=== PATIENT | female | born 1975 | race Two or more races ===

== ENCOUNTER 2020-07-12 09:24 | Outpatient (REF) | payer OTHER, SELFPAY ==
[2020-07-16 09:56] LABS: HPV mRNA E6/E7 Not Detected (Not Detected)
== END 2020-07-12 09:25 | disposition home or self-care (01) ==
LOC: HO.LAB 09:24
PROVIDERS: PCP Internal Medicine; Visit Provider Obstetrics & Gynecology
DX: Z01.419 Encounter for gynecological examination (general) (routine) without abnormal findings (principal); D21.9 Benign neoplasm of connective and other soft tissue, unspecified
CPT/HCPCS: 87624; 88142

== ENCOUNTER 2020-07-25 11:03 | Outpatient (REF) | payer OTHER, SELFPAY ==
--- NOTE | 2020-07-25 11:08 | US_ITS ---
EXAMINATION: ULTRASOUND PELVIS COMPLETE CLINICAL INFORMATION: Fibroid follow up. COMPARISON: Ultrasound pelvis 07/19/2019 and 05/31/2019. TECHNIQUE: Transabdominal and transvaginal ultrasound of the pelvis is performed. FINDINGS: The uterus is anteverted, anteflexed measuring 9.9 cm in length, 4.6 cm in AP and 8.6 cm in transverse dimension. The uterus has a bicornuate appearance. There is a heterogeneous large mass in the fundus measuring 7.7 x 6.8 x 8.2 cm. Previously it measured 5.9 x 4.6 x 6.0 cm. No additional lesion seen. There are small nabothian cysts seen in the cervix. The right ovary measures 3.1 x 2.8 x 2.4 cm and volume 10.9 mL. There are 2 anechoic cysts measuring 2.0 x 1.2 x 1.6 cm and 1.7 x 1.2 x 1.5 cm. Previously right ovary measured 2.9 x 2.0 x 2.0 cm. The left ovary measures 3.2 x 2.6 x 3.6 cm. There is an anechoic cyst measuring 3.7 x 2.1 x 2.7 cm. Previously left ovary measured 2.3 x 1.6 x 2.5 cm. US/US transvaginal IMPRESSION: Large uterine fibroid with a maximum dimension of 8.2 cm. Previously same lesion had a maximum dimension of 6.0 and 6.2 cm. Bilateral ovarian cysts. 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 Small nabothian cysts seen.
--- NOTE | 2020-07-25 11:08 | US_ITS ---
EXAMINATION: ULTRASOUND PELVIS COMPLETE CLINICAL INFORMATION: Fibroid follow up. COMPARISON: Ultrasound pelvis 07/19/2019 and 05/31/2019. TECHNIQUE: Transabdominal and transvaginal ultrasound of the pelvis is performed. FINDINGS: The uterus is anteverted, anteflexed measuring 9.9 cm in length, 4.6 cm in AP and 8.6 cm in transverse dimension. The uterus has a bicornuate appearance. There is a heterogeneous large mass in the fundus measuring 7.7 x 6.8 x 8.2 cm. Previously it measured 5.9 x 4.6 x 6.0 cm. No additional lesion seen. There are small nabothian cysts seen in the cervix. The right ovary measures 3.1 x 2.8 x 2.4 cm and volume 10.9 mL. There are 2 anechoic cysts measuring 2.0 x 1.2 x 1.6 cm and 1.7 x 1.2 x 1.5 cm. Previously right ovary measured 2.9 x 2.0 x 2.0 cm. The left ovary measures 3.2 x 2.6 x 3.6 cm. There is an anechoic cyst measuring 3.7 x 2.1 x 2.7 cm. Previously left ovary measured 2.3 x 1.6 x 2.5 cm. US/US pelvic complete IMPRESSION: Large uterine fibroid with a maximum dimension of 8.2 cm. Previously same lesion had a maximum dimension of 6.0 and 6.2 cm. Bilateral ovarian cysts. 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 Small nabothian cysts seen.
== END 2020-07-25 11:04 | disposition home or self-care (01) ==
LOC: HO.US 11:03
PROVIDERS: Visit Provider Obstetrics & Gynecology
DX: D21.9 Benign neoplasm of connective and other soft tissue, unspecified (principal)
CPT/HCPCS: 76830; 76856

== ENCOUNTER 2020-08-07 12:00 | Outpatient (REF) | payer OTHER, SELFPAY ==
--- NOTE | 2020-08-07 | MM_ITS ---
EXAMINATION: MM SCREENING DIGITAL BREAST TOMOSYNTHESIS, BILATERAL CLINICAL INFORMATION: Screening. Asymptomatic. The lifetime risk of breast cancer based on the Tyrer-Cuzick Model is %. COMPARISON: Mammography: December 04, 2018 and studies dating back to May 2012 TECHNIQUE: Digital breast tomosynthesis is performed in both the craniocaudal and mediolateral oblique views along with computer-aided detection (CAD). Synthesized 2D images are generated from the tomosynthesis. Bilateral exaggerated craniocaudal views performed. FINDINGS: The breasts are extremely dense, which lowers the sensitivity of mammography (ACR BI-RADS breast composition Category d). There are no significant masses, abnormal calcifications, or other abnormalities. MM/MM tomosynthesis screening BI IMPRESSION: There are no significant changes from prior study. ASSESSMENT: BI-RADS 1: Negative RECOMMENDATION: Routine annual mammography screening. This patient's information was entered into a reminder system with a target due date for their next mammogram.
== END 2020-08-07 12:01 | disposition home or self-care (01) ==
LOC: HO.MAMMO 12:00
PROVIDERS: Visit Provider Obstetrics & Gynecology
DX: Z12.31 Encounter for screening mammogram for malignant neoplasm of breast (principal)
CPT/HCPCS: 77063; 77067

== ENCOUNTER 2020-08-08 13:36 | Outpatient (REF) | payer OTHER, SELFPAY ==
[2020-08-08 16:48] LABS: MANUAL DIFF FLAG NO
[2020-08-08 16:53] LABS: Appearance Urine CLEAR; Color Urine YELLOW; Glucose Urine UA NEG (NEG); Leukocyte Esterase Urine NEG (NEG); Nitrite Urine NEG (NEG); PH 5.5 (5.0-8.0); Specific Gravity - Urine >= 1.030 (1.005-1.025); Urine Blood NEG (NEG); Urine Ketones NEG (NEG); Urine Protein NEG (NEG-TRACE)
[2020-08-08 16:54] LABS: Basophils Absolute Auto 0.1 X10*3/uL (0.0-0.2); Eosinophils Absolute Auto 0.9 X10*3/uL (0.0-0.4); Eosinophils Percent Auto 8.1 % (0-4); Hematocrit 41.4 % (37-47); Imm Gran Abs Auto 0.03 X10*3/uL (0.00-0.03); Imm Gran Pct Auto 0.3 % (0.0-0.4); Lymphocytes Absolute Auto 2.8 X10*3/uL (1.2-4.9); Lymphocytes Percent Auto 26.2 % (20-40); Mean Corpuscular HGB Conc 33.8 g/dl (31.0-35.0); Mean Corpuscular Hemoglobin 31.6 pg (27.0-33.0); Mean Corpuscular Volume 93.5 fL (80-98); Mean Platelet Volume 11.7 fL (9.4-12.3); Monocytes Absolute Auto 0.8 X10*3/uL (0.1-1.2); Monocytes Percent Auto 7.6 % (2-11); Neutrophils Absolute Auto 6.1 X10*3/uL (2.0-8.3); Neutrophils Percent Auto 56.8 % (45-73); Platelet Count 252 X10*3/uL (160-400); Red Blood Count 4.43 X10*6/uL (4.20-5.50); White Blood Count 10.8 X10*3/uL (4.8-10.8)
[2020-08-08 17:13] LABS: Alanine Aminotransferase 13 U/L (0-31); Alkaline Phosphatase 67 U/L (39-117); Anion Gap 11 (12-20); Aspartate Amino Transferase 19 U/L (5-31); Bilirubin Total 0.7 mg/dL (0.0-1.0); Blood Urea Nitrogen 11 mg/dL (9-16); C Reactive Protein 0.25 mg/dL (< or = 0.50); Calcium 8.7 mg/dL (8.4-10.2); Carbon Dioxide 24 mmol/L (22-29); Chloride 109 mmol/L (96-108); Estimated Glomerular Filt Rate > 60; Glucose Random 92 mg/dL (60-115); Potassium 3.9 mmol/l (3.3-5.1); Sodium 140 mmol/L (135-145); Total Protein 6.4 g/dL (6.5-8.0)
== END 2020-08-08 13:37 | disposition home or self-care (01) ==
LOC: HO.LAB 13:36
PROVIDERS: Absent Provider Internal Medicine; PCP Internal Medicine; Visit Provider Obstetrics & Gynecology
DX: J45.909 Unspecified asthma, uncomplicated (principal); M54.9 Dorsalgia, unspecified; D21.9 Benign neoplasm of connective and other soft tissue, unspecified
CPT/HCPCS: 36415; 80053; 81003; 85025; 86140; 87086

== ENCOUNTER → 2020-10-22 12:10 | Outpatient (BNVA) | payer OTHER, SELFPAY | PROVIDERS: Visit Provider Obstetrics & Gynecology ==

== ENCOUNTER 2020-10-22 12:30 | Outpatient (REF) | payer OTHER, SELFPAY ==
[2020-10-22 13:59] LABS: MANUAL DIFF FLAG NO
[2020-10-22 14:02] LABS: Glucose Urine UA NEG (NEG); Leukocyte Esterase Urine NEG (NEG); Nitrite Urine NEG (NEG); PH 5.5 (5.0-8.0); Specific Gravity - Urine 1.025 (1.005-1.025); Urine Blood NEG (NEG); Urine Ketones NEG (NEG); Urine Protein NEG (NEG-TRACE)
[2020-10-22 14:05] LABS: Appearance Urine CLEAR; Color Urine DARK YELLOW
[2020-10-22 14:10] LABS: Basophils Absolute Auto 0.1 X10*3/uL (0.0-0.2); Basophils Percent Auto 0.8 % (0-2); Eosinophils Absolute Auto 0.4 X10*3/uL (0.0-0.4); Eosinophils Percent Auto 4.5 % (0-4); Hematocrit 38.5 % (37-47); Hemoglobin 12.7 g/dl (12.0-16.0); Imm Gran Abs Auto 0.03 X10*3/uL (0.00-0.03); Imm Gran Pct Auto 0.3 % (0.0-0.4); Lymphocytes Absolute Auto 1.5 X10*3/uL (1.2-4.9); Lymphocytes Percent Auto 17.2 % (20-40); Mean Platelet Volume 11.7 fL (9.4-12.3); Monocytes Absolute Auto 0.8 X10*3/uL (0.1-1.2); Monocytes Percent Auto 8.6 % (2-11); Neutrophils Absolute Auto 6.1 X10*3/uL (2.0-8.3); Neutrophils Percent Auto 68.6 % (45-73); Platelet Count 396 X10*3/uL (160-400); Red Blood Count 4.23 X10*6/uL (4.20-5.50); Red Cell Distribution Width 12.5 % (11.0-16.0); White Blood Count 8.9 X10*3/uL (4.8-10.8)
[2020-10-22 14:17] LABS: Mucus Urine 1+ /LPF; RBC Urine 0 /HPF (0); Squamous Epithelial Cell Urine TRACE /LPF; WBC Urine 0 /HPF (0-4)
[2020-10-22 14:31] LABS: Alanine Aminotransferase 83 U/L (0-31); Albumin Level 3.6 g/dL (3.5-5.0); Alkaline Phosphatase 89 U/L (39-117); Anion Gap 12 (12-20); Aspartate Amino Transferase 89 U/L (5-31); Bilirubin Total 0.6 mg/dL (0.0-1.0); Blood Urea Nitrogen 10 mg/dL (9-16); C Reactive Protein 8.82 mg/dL (< or = 0.50); Calcium 8.7 mg/dL (8.4-10.2); Carbon Dioxide 25 mmol/L (22-29); Chloride 107 mmol/L (96-108); Estimated Glomerular Filt Rate > 60; Glucose Random 82 mg/dL (60-115); Lipase 24 U/L (8-78); Potassium 4.2 mmol/L (3.3-5.1); Sodium 140 mmol/L (135-145); Total Protein 6.5 g/dL (6.5-8.0)
== END 2020-10-22 12:31 | disposition home or self-care (01) ==
LOC: HO.10HDL 12:30
PROVIDERS: Visit Provider Internal Medicine
DX: U07.1 COVID-19 (principal); R10.9 Unspecified abdominal pain; R19.7 Diarrhea, unspecified
CPT/HCPCS: 36415; 80053; 81001; 83690; 85025; 86140; 87086

== ENCOUNTER 2020-10-24 15:15 | Outpatient (REF) | payer OTHER, SELFPAY | END 2020-10-24 15:16 | disposition home or self-care (01) | LOC: HO.US 15:15 | PROVIDERS: PCP Internal Medicine; Visit Provider Obstetrics & Gynecology | DX: Z13.89 Encounter for screening for other disorder (principal) ==

== ENCOUNTER 2020-10-24 15:29 | Outpatient (REF) | payer OTHER, SELFPAY ==
--- NOTE | 2020-10-24 | US_ITS ---
EXAMINATION: US ABDOMEN COMPLETE CLINICAL INFORMATION: Abdominal pain. COMPARISON: None TECHNIQUE: Real-time imaging of the abdominal viscera. FINDINGS: PANCREAS: Normal. ABDOMINAL AORTA: The proximal, mid, and distal segments are normal in caliber. INFERIOR VENA CAVA: Visualized portions are normal. LIVER: Normal. The liver is normal in size. The liver contour is normal. Parenchymal echogenicity is normal. No focal hepatic lesion. There is no intrahepatic biliary duct dilatation seen. GALLBLADDER: Surgically absent. COMMON BILE DUCT: Normal in caliber measuring 0.4 cm in diameter. RIGHT KIDNEY: Normal. No hydronephrosis. No renal calculi or focal parenchymal lesions. The kidney measures 10.0 cm in maximum dimension. LEFT KIDNEY: Duplicated collecting system is suspected. No hydronephrosis. No renal calculi or focal parenchymal lesions. The kidney measures 13.3 cm in maximum dimension. SPLEEN: Normal. The spleen measures 7.9 cm in maximum dimension. FREE FLUID: None. US/US abdomen complete IMPRESSION: Unremarkable abdominal ultrasound.
== END 2020-10-24 15:30 | disposition home or self-care (01) ==
LOC: HO.HMGCX 15:29
PROVIDERS: PCP Internal Medicine; Visit Provider Internal Medicine
DX: R10.9 Unspecified abdominal pain (principal); R94.5 Abnormal results of liver function studies
CPT/HCPCS: 76700

== ENCOUNTER 2020-10-25 11:34 | Outpatient (REF) | payer OTHER, SELFPAY ==
[2020-10-26 08:34] LABS: HBS Num1 1.95 mIU/mL (0-7.99); HBsAGNum1 0.16 S/CO (0.00-0.99); Hepatitis B Surface Antigen Negative (Negative); ~Hepatitis B Surface Antibody NONREACTIVE (Nonreactive)
[2020-10-26 08:43] LABS: ~HepC Num1 0.14 S/CO (0.00-0.79); ~Hepatitis C Antibody Nonreactive (Nonreactive)
== END 2020-10-25 11:35 | disposition home or self-care (01) ==
LOC: HO.HMGCLDS 11:34
PROVIDERS: PCP Internal Medicine; Visit Provider Internal Medicine
DX: R79.89 Other specified abnormal findings of blood chemistry (principal)
CPT/HCPCS: 36415; 86706; 86803; 87340

== ENCOUNTER 2020-10-29 12:40 | Outpatient (REF) | payer OTHER, SELFPAY ==
[2020-10-29 14:35] LABS: Alanine Aminotransferase 38 U/L (0-31); Albumin Level 3.9 g/dL (3.5-5.0); Alkaline Phosphatase 86 U/L (39-117); Aspartate Amino Transferase 25 U/L (5-31); Bilirubin Direct < 0.2 mg/dL (0.0-0.5); Bilirubin Total 0.2 mg/dL (0.0-1.0); C Reactive Protein 1.35 mg/dL (< or = 0.50); Total Protein 6.8 g/dL (6.5-8.0)
[2020-10-30 17:22] LABS: EBV-VCA IgG Ab >750.00 U/mL; EBV-VCA IgM Ab <36.00 U/mL
== END 2020-10-29 12:41 | disposition home or self-care (01) ==
LOC: HO.10HDL 12:40
PROVIDERS: Visit Provider Internal Medicine
DX: R10.9 Unspecified abdominal pain (principal); R79.89 Other specified abnormal findings of blood chemistry
CPT/HCPCS: 36415; 80076; 86140; 86664; 86665

== ENCOUNTER 2020-11-06 15:47 | Outpatient (REF) | payer OTHER, SELFPAY ==
--- NOTE | ~2020-11-06 | US_ITS ---
EXAMINATION: US PELVIS TRANSVAGINAL CLINICAL INFORMATION: Pelvic and perineal pain COMPARISON: July 25, 2020 and July 12, 2019 TECHNIQUE: Transcutaneous and transvaginal pelvic ultrasound. Transvaginal scanning was performed after voiding to better evaluate the endometrium and adnexa. FINDINGS: The uterus measures 10.6 x 5.2 x 8.7 cm. The uterus is anteverted. No suspicious abnormalities region of the cervix. Nabothian cysts are present. The uterine contour is smooth. There is a bicornate uterus present. The endometrium measures 0.5 cm. There is a large heterogeneous echotexture structure involving the posterior body and fundus of the uterus measuring approximately 6.2 x 6.7 x 7.0 cm which is slightly smaller than on prior study where it measured 7.7 x 6.8 x 8.2 cm in size. The right ovary measures approximately 3.9 x 1.7 x 2.8 cm. The calculated right ovarian volume is approximately 9.7 mL. There is a minimal complex 1.3 x 1.1 cm right ovarian cyst with a thin septum.. Normal vascular flow is present. The left ovary measures 2.4 x 2.0 x 2.5 cm. The calculated left ovarian volume is approximately 6.3 mL. No abnormal left adnexal mass appreciated. There is normal vascular flow present. No significant free pelvic fluid. US/US transvaginal IMPRESSION: Bicornuate uterus. Large uterine body/fundal fibroid slightly smaller than on prior study with maximum dimension of approximately 7 cm. Right ovarian cyst.
--- NOTE | ~2020-11-06 | US_ITS ---
EXAMINATION: US PELVIS TRANSVAGINAL CLINICAL INFORMATION: Pelvic and perineal pain COMPARISON: July 25, 2020 and July 12, 2019 TECHNIQUE: Transcutaneous and transvaginal pelvic ultrasound. Transvaginal scanning was performed after voiding to better evaluate the endometrium and adnexa. FINDINGS: The uterus measures 10.6 x 5.2 x 8.7 cm. The uterus is anteverted. No suspicious abnormalities region of the cervix. Nabothian cysts are present. The uterine contour is smooth. There is a bicornate uterus present. The endometrium measures 0.5 cm. There is a large heterogeneous echotexture structure involving the posterior body and fundus of the uterus measuring approximately 6.2 x 6.7 x 7.0 cm which is slightly smaller than on prior study where it measured 7.7 x 6.8 x 8.2 cm in size. The right ovary measures approximately 3.9 x 1.7 x 2.8 cm. The calculated right ovarian volume is approximately 9.7 mL. There is a minimal complex 1.3 x 1.1 cm right ovarian cyst with a thin septum.. Normal vascular flow is present. The left ovary measures 2.4 x 2.0 x 2.5 cm. The calculated left ovarian volume is approximately 6.3 mL. No abnormal left adnexal mass appreciated. There is normal vascular flow present. No significant free pelvic fluid. US/US pelvic complete IMPRESSION: Bicornuate uterus. Large uterine body/fundal fibroid slightly smaller than on prior study with maximum dimension of approximately 7 cm. Right ovarian cyst.
== END 2020-11-06 15:48 | disposition home or self-care (01) ==
LOC: HO.US 15:47
PROVIDERS: Visit Provider Obstetrics & Gynecology
DX: R10.2 Pelvic and perineal pain (principal)
CPT/HCPCS: 76830; 76856

== ENCOUNTER 2020-11-12 11:43 | Outpatient (REF) | payer OTHER, SELFPAY ==
[2020-11-13 08:21] LABS: CA-125 16 U/mL (<35)
== END 2020-11-12 11:44 | disposition home or self-care (01) ==
LOC: HO.LAB 11:43
PROVIDERS: PCP Internal Medicine; Visit Provider Obstetrics & Gynecology
DX: R10.2 Pelvic and perineal pain (principal); D21.9 Benign neoplasm of connective and other soft tissue, unspecified; N83.299 Other ovarian cyst, unspecified side; J45.909 Unspecified asthma, uncomplicated; Z79.899 Other long term (current) drug therapy
CPT/HCPCS: 36415; 86304

== ENCOUNTER → 2020-11-13 16:19 | Outpatient (BNVA) | payer OTHER, SELFPAY | PROVIDERS: PCP Internal Medicine; Visit Provider Obstetrics & Gynecology ==

== ENCOUNTER 2020-12-06 11:20 | Outpatient (REF) | payer OTHER, SELFPAY ==
--- NOTE | ~2020-12-06 | CT_ITS ---
EXAMINATION: CT ABDOMEN AND PELVIS WITHOUT CONTRAST CLINICAL INFORMATION: Left lower quadrant abdominal pain. COMPARISON: Ultrasound pelvis 11/06/2020. TECHNIQUE: Multidetector volumetric imaging was performed from the superior aspect of the liver through the pubic symphysis. Sagittal and coronal reformatted images were obtained on the technologist's workstation. This CT examination was performed using dose optimization techniques as appropriate, variously including the following: *Automated exposure control *Adjustment of mA and/or kV according to patient size (this includes techniques or standardized protocols for targeted exams where dose is matched to indication/reason for exam; i.e. extremities or head) *Use of iterative reconstruction technique DLP: 330 mGy-cm FINDINGS: LUNG BASES: There is a 4 nodule in the left lower lobe (axial image 5/5). The heart size is normal. LIVER, GALLBLADDER, AND BILIARY TREE: The liver is normal in size, shape, and attenuation. No focal hepatic lesion or biliary ductal dilatation is present. The gallbladder has been surgically removed. PANCREAS: Unremarkable. SPLEEN: Unremarkable. ADRENAL GLANDS: Unremarkable. KIDNEYS AND URETERS: The kidneys are normal in size, shape, and attenuation. No hydronephrosis, hydroureter, or calculi are seen. No perinephric stranding. BLADDER: Unremarkable. GASTROINTESTINAL TRACT: The small and large bowel is unremarkable. The appendix is unremarkable. ABDOMINAL WALL: No significant hernia is appreciated. LYMPH NODES: Normal. VASCULAR: Unremarkable. PELVIC VISCERA: The uterus is bulky and enlarged from underlying fundal fibroid disease. The moderate-sized lesion in the fundus measures 3.3 x 5.7 x 3.5 cm. There are 2 hypodense lesions in the left adnexa/upper pelvis measuring 3.2 x 2.2 cm and 3.5 x 2.3 cm measuring approximately 25 to 30 Hounsfield units, likely complex cysts. These were not seen on the previous ultrasound exam. No abnormality is seen in the right adnexa. There is no free fluid in the pelvis. OSSEOUS STRUCTURES: Unremarkable. CT/CT abdomen pelvis wo con IMPRESSION: 2 complex lesion in the left adnexa, likely complex ovarian cysts. These are new. The right ovarian cyst seen on the recent ultrasound is not seen on today's exam. Bulky uterus from a large fundal uterine fibroid. This was seen on the recent ultrasound pelvis exam and measured 6.2 x 6.7 x 7.0 cm.
== END 2020-12-06 11:21 | disposition home or self-care (01) ==
LOC: HO.CT 11:20
PROVIDERS: Visit Provider Internal Medicine
DX: R10.32 Left lower quadrant pain (principal)
CPT/HCPCS: 74176

== ENCOUNTER 2020-12-14 11:10 | Outpatient (REF) | payer OTHER, SELFPAY ==
[2020-12-14 13:53] LABS: Glucose Urine UA NEG (NEG); Leukocyte Esterase Urine NEG (NEG); Nitrite Urine NEG (NEG); PH 5.5 (5.0-8.0); Specific Gravity - Urine >= 1.030 (1.005-1.025); Urine Blood NEG (NEG); Urine Ketones NEG (NEG); Urine Protein NEG (NEG-TRACE)
[2020-12-14 13:56] LABS: Appearance Urine CLEAR; Color Urine YELLOW
[2020-12-14 14:05] LABS: MANUAL DIFF FLAG NO
[2020-12-14 14:10] LABS: Basophils Absolute Auto 0.1 X10*3/uL (0.0-0.2); Basophils Percent Auto 1.2 % (0-2); Eosinophils Absolute Auto 0.5 X10*3/uL (0.0-0.4); Eosinophils Percent Auto 5.9 % (0-4); Hematocrit 41.2 % (37-47); Hemoglobin 13.7 g/dl (12.0-16.0); Imm Gran Abs Auto 0.02 X10*3/uL (0.00-0.03); Imm Gran Pct Auto 0.3 % (0.0-0.4); Lymphocytes Absolute Auto 1.7 X10*3/uL (1.2-4.9); Lymphocytes Percent Auto 21.3 % (20-40); Mean Corpuscular HGB Conc 33.3 g/dl (31.0-35.0); Mean Corpuscular Hemoglobin 30.2 pg (27.0-33.0); Mean Corpuscular Volume 90.9 fL (80-98); Mean Platelet Volume 11.9 fL (9.4-12.3); Monocytes Absolute Auto 0.7 X10*3/uL (0.1-1.2); Monocytes Percent Auto 8.3 % (2-11); Neutrophils Absolute Auto 4.9 X10*3/uL (2.0-8.3); Platelet Count 284 X10*3/uL (160-400); Red Blood Count 4.53 X10*6/uL (4.20-5.50); Red Cell Distribution Width 13.8 % (11.0-16.0); White Blood Count 7.8 X10*3/uL (4.8-10.8)
[2020-12-14 14:39] LABS: Alanine Aminotransferase 22 U/L (0-31); Albumin Level 4.2 g/dL (3.5-5.0); Alkaline Phosphatase 80 U/L (39-117); Anion Gap 16 (12-20); Aspartate Amino Transferase 22 U/L (5-31); Bilirubin Total 0.5 mg/dL (0.0-1.0); Blood Urea Nitrogen 14 mg/dL (9-16); C Reactive Protein 0.48 mg/dL (< or = 0.50); Calcium 9.2 mg/dL (8.4-10.2); Carbon Dioxide 21 mmol/L (22-29); Chloride 105 mmol/L (96-108); Estimated Glomerular Filt Rate > 60; Glucose Random 77 mg/dL (60-115); Lipase 21 U/L (8-78); Potassium 4.2 mmol/L (3.3-5.1); Sodium 138 mmol/L (135-145); Total Protein 7.1 g/dL (6.5-8.0)
[2020-12-14 14:48] LABS: Erythrocyte Sedimentation Rate 8 MM/HR (0-20)
[2020-12-14 15:01] LABS: Free T4 (Free Thyroxine) 0.86 ng/dL (0.71-1.85); Thyroid Stimulating Hormone 1.21 uIU/mL (0.32-4.0); Vitamin B12 422 pg/mL (200-900)
[2020-12-16 13:21] LABS: Anti Nuclear Antibody Screen NEGATIVE (NEGATIVE)
== END 2020-12-14 11:11 | disposition home or self-care (01) ==
LOC: HO.10HDL 11:10
PROVIDERS: Visit Provider Internal Medicine
DX: R53.83 Other fatigue (principal); G62.9 Polyneuropathy, unspecified; R63.4 Abnormal weight loss; R23.3 Spontaneous ecchymoses; Z86.16 Personal history of COVID-19
CPT/HCPCS: 36415; 80053; 81003; 82306; 82607; 83690; 84439; 84443; 85025; 85652; 86038; 86039; 86140; 87086

== ENCOUNTER → 2021-12-30 09:23 | Outpatient (BNVA) | payer OTHER, SELFPAY | PROVIDERS: PCP Internal Medicine; Visit Provider Obstetrics & Gynecology | DX: Z13.89 Encounter for screening for other disorder (principal) ==

== ENCOUNTER 2022-02-25 10:49 | Outpatient (REF) | payer OTHER, SELFPAY ==
--- NOTE | ~2022-02-25 | US_ITS ---
EXAMINATION: US PELVIS CLINICAL INFORMATION: Ovarian cyst. COMPARISON: None. TECHNIQUE: Ultrasound of the pelvis is performed using both transabdominal and transvaginal transducers along with Doppler. Transvaginal imaging is performed due to inadequate visualization transabdominally. FINDINGS: Uterus: Suspect bicornuate uterus. The uterus is anteverted, anteflexed and enlarged measuring 19 cm in length, 4.5 cm in AP and 8.0 cm in transverse dimension. The double wall endometrial thickness is 0.9 cm. There is a small amount of fluid within the endometrial canal. There is a hypoechoic mass in the fundal uterus measuring 6.2 x 3.9 x 6.0 cm. Previously it measured 6.2 x 6.7 x 7.0 cm. There is a calcification in the cervix with few scattered nabothian cysts. The uterus is smooth in contour and has normal myometrial echogenicity. No visible fibroid. Adnexa: Both ovaries are visualized. There is normal color flow to the adnexa. There is no ovarian torsion. There is no pelvic ascites or fluid collection. Right ovary measures 2.6 x 2.0 x 2.7 cm and volume 7.3 mL. There is an exophytic or paraovarian cyst measuring 1.3 x 1.0 x 1.4 cm. Left ovary measures 3.1 x 2.4 x 3.2 cm and volume 12.5 mL. There is left adnexal cyst measuring 0.4 x 2.4 x 3.5 cm. A complex left ovarian cyst is seen measuring 2.3 x 1.5 x 2.2 cm. There is no free fluid seen. US/US pelvic and transvaginal IMPRESSION: Likely bilateral paraovarian cyst and a complex left ovarian cyst. Small nabothian cysts seen in the cervix with focal calcification in the cervix. Likely bicornuate uterus with a solid fibroid in the fundus.
== END 2022-02-25 10:50 | disposition home or self-care (01) ==
LOC: HO.US 10:49
PROVIDERS: PCP Internal Medicine; Visit Provider Obstetrics & Gynecology
DX: N83.299 Other ovarian cyst, unspecified side (principal)
CPT/HCPCS: 76830; 76856

== ENCOUNTER 2022-03-13 10:30 | Outpatient (REF) | payer OTHER, SELFPAY ==
[2022-03-28 12:00] LABS: CA-125 15
== END 2022-03-13 10:31 | disposition home or self-care (01) ==
LOC: HO.LAB 10:30
PROVIDERS: PCP Internal Medicine; Visit Provider Obstetrics & Gynecology
DX: N83.299 Other ovarian cyst, unspecified side (principal)
CPT/HCPCS: 36415; 86304

== ENCOUNTER 2022-06-27 10:49 | Outpatient (REF) | payer OTHER, SELFPAY ==
--- NOTE | ~2022-06-27 | US_ITS ---
EXAMINATION: US PELVIS CLINICAL INFORMATION: Ovarian cyst COMPARISON: Previous pelvic ultrasounds most recent February 2022 TECHNIQUE: Ultrasound of the pelvis is performed using both transabdominal and transvaginal transducers along with Doppler. Transvaginal imaging is performed due to inadequate visualization transabdominally. FINDINGS: The uterus is anteverted and measures 11.8 x 5 x 9 cm in dimension. There is a posterior fundal uterine fibroid measuring 5.2 x 3.6 x 6 cm. This appears unchanged. There are 2 endometrial canals each measuring 0.9 cm. There are nabothian cysts in the cervix. The right ovary measures 2.9 x 1.1 x 1.1 cm. There is a 1.6 x 1 x 1.7 cm paraovarian or adnexal simple cyst. The left ovary measures 3.9 x 2 x 3.6 cm. There are multiple left ovarian cysts, largest a paraovarian or adnexal cyst measuring 3.5 x 2.5 x 4.3 cm. There is no fluid in the pelvis. US/US pelvic and transvaginal IMPRESSION: Enlarged uterus and large posterior fundal uterine fibroid. 2 endometrial canals questionable for septate or arcuate versus bicornuate uterus. Bilateral simple adnexal cysts, largest measuring 3.5 x 2.5 x 4.3 cm on the left.
== END 2022-06-27 10:50 | disposition home or self-care (01) ==
LOC: HO.US 10:49
PROVIDERS: Visit Provider Obstetrics & Gynecology
DX: N83.299 Other ovarian cyst, unspecified side (principal)
CPT/HCPCS: 76830; 76856

== ENCOUNTER 2022-09-18 10:35 | Outpatient (REF) | payer OTHER, SELFPAY ==
[2022-09-18 11:23] LABS: Influenza A PCR NEGATIVE (Negative); Influenza B PCR NEGATIVE (Negative); Resp Syncy Virus RNA Qual PCR NEGATIVE (Negative); SARS COV2 PCR INHOUSE NEGATIVE (Negative)
== END 2022-09-18 10:36 | disposition home or self-care (01) ==
LOC: HO.LNP 10:35
PROVIDERS: Visit Provider Internal Medicine
DX: Z20.822 Contact with and (suspected) exposure to COVID-19 (principal); R06.02 Shortness of breath
CPT/HCPCS: 0241U

== ENCOUNTER 2023-04-28 09:32 | Outpatient (AMB) | payer OTHER, SELFPAY ==
--- NOTE | 2023-04-28 09:34 | A.OFFVIS_ITS ---
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 No complaints. History of myoma on ultrasound seen in 07/12. 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ly active: Yes Sexual orientation: Straight/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 Gender identity: Female Female Reproductive History Menstrual Age of Menarche: 11 Date of last menstrual period: 04/08/23 control method: none Total pregnancies: 4 Full term: 2 Number of Living Children: 2 Ab induced: 1 Ab spontaneous: 1 Date of last pap smear: 07/13/20 History of abnormal pap smear: No Date of Mammogram: 07/13/20 History of abnormal mammogram: No Review of Systems Const All systems reviewed & are unremarkable except as noted in HPI and below Card Reports as per HPI Resp Reports as per HPI GI Reports as per HPI and Reports no additional complaints Reports as per HPI Physical Exam Vital Signs: Last Vital Signs BP 110/68 04/28/23 09:38 BMI result Body Mass Index 26.7 Const General: cooperative, healthy appearing and comfortable Chest Chest palpation & inspection: normal inspection of the chest and normal palpation of entire chest wall Breast/axilla inspection: normal inspection of the breasts and normal inspection of the axillae Breast/axilla palpation: normal palpation of the breasts, normal palpation of the axillae and no axillary lymphadenopathy Resp Effort & Inspection: normal respiratory effort Auscultation: clear to auscultation bilaterally Percussion: percussion normal Cardio Palpation: normal PMI Rate: regular rate Rhythm: regular rhythm Heart sounds: no murmurs and no rubs Peripheral pulses: Peripheral pulses 2+ throughout GI Inspection: Yes normal to inspection Palpation (GI): Soft to palpation, nontender, no guarding, not rigid and No hepatosplenomegaly present Percussion: Yes normal to percussion Auscultation: normal bowel sounds Rectal Exam - Female: deferred General: Yes bladder normal to palpation External Female Exam: No lesion Speculum Exam - Vagina: normal appearance of the vagina, normal palpation, normal vaginal discharge and not erythematous Speculum Exam - Cervix: normal appearance of the cervix and normal palpation Bimanual exam- vagina & uterus: normal bimanual exam, normal palpation, uterine size normal, bladder normal to palpation, consistency normal and normal palpation Bimanual Exam- Adnexa, other: normal adnexae, no masses and no tenderness Assessment & Plan Assessment & Plan (1) Well woman exam: Code(s): Z01.419 - Encounter for gynecological examination (general) (routine) without abnormal findings Plan: Cotesting not indicated this year. Mammogram ordered. Counseled the patient about the recommended dietary allowance of 1000 mg of Calcium & 600 IU of vitamin D. Referred to GI for screening colonoscopy. The patient was instructed to perform monthly self-breast exams and to schedule an annual exam in a year; All questions answered and the patient verbalized understanding. Instructed the patient to schedule annual exam in a year (2) Myoma: Code(s): D21.9 - Benign neoplasm of connective and other soft tissue, unspecified Plan: For repeat pelvic ultrasound compare the size of the myoma and treat accordingly. Instructions given the patient to schedule ultrasound follow-up appointment in 2 weeks. Orders: Orders MM screening mammo BI Today Z12.31 - Encounter for screening mammogram for malignant neoplasm of breast US pelvic and transvaginal Today D21.9 - Benign neoplasm of connective and other soft tissue, unspecified Referrals Gastroenterology Referral Z12.11 - Encounter for screening for malignant neoplasm of colon Coding Level of Care Code Est Pt Prev Care 40-64y([id number]) Diagnoses Well woman exam Z01.419 Myoma D21.9
[2023-04-28 09:38] VITALS: BP 110/68; BMI 26.7
== END 2023-04-28 10:09 | disposition home or self-care (01) ==
LOC: HO.HWS 09:32
PROVIDERS: PCP Internal Medicine; Visit Provider Obstetrics & Gynecology
DX: Z01.419 Encounter for gynecological examination (general) (routine) without abnormal findings (principal); D21.9 Benign neoplasm of connective and other soft tissue, unspecified
CPT/HCPCS: 99396

== ENCOUNTER → 2023-04-28 09:32 | Outpatient (BNVA) | payer OTHER, SELFPAY | PROVIDERS: PCP Internal Medicine; Visit Provider Obstetrics & Gynecology ==

== ENCOUNTER 2023-05-14 10:37 | Outpatient (REF) | payer OTHER, SELFPAY ==
--- NOTE | ~2023-05-14 | US_ITS ---
EXAMINATION: US PELVIS CLINICAL INFORMATION: Myoma; the last menstrual period was on 05/04/2023. COMPARISON: Pelvic ultrasound dated 06/27/2022. TECHNIQUE: Ultrasound of the pelvis is performed using both transabdominal and transvaginal transducers along with Doppler. Transvaginal imaging is performed due to inadequate visualization transabdominally. FINDINGS: The uterus is of normal size and echogenicity measuring 14.0 x 5.3 x 8.6 cm. 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 A regular, homogeneous endometrium is identified measuring 1.4 cm. FIBROIDS: There are 2 fibroids seen. 1. Location: Posterior rightward fundus, subserosal. Size: 4.7 x 4.5 x 5.5 cm. Prior: 5.2 x 3.9 x 6.0 cm. Fibroid characteristics: Heterogeneously hypoechoic. 2. Location: Anterior leftward upper body, myometrial. Size: 1.8 x 1.5 x 1.8 cm. Prior: Not seen. Fibroid characteristics: Hypoechoic. Both ovaries are of normal size and echogenicity. The right measures 3.8 x 2.4 x 2.1 cm for a volume of 10.0 mL. The left measures 3.4 x 1.0 x 2.4 cm for a volume of 4.3 mL. There is no pelvic free fluid. Within the left adnexal region, superolateral to the left ovary, a 5.0 x 2.7 x 4.4 cm fluid-filled tubular structure is seen suspicious for a hydrosalpinx. There is prominent pelvic vasculature, right greater than left. US/US pelvic and transvaginal IMPRESSION: 1. Uterine fibroids are seen, as detailed. 2. The uterus shows a bicornuate appearance. 3. A left hydrosalpinx is again suspected, with dimensions as detailed. 4. There is prominent adnexal vasculature, right greater than left, suggesting possible pelvic congestion.
== END 2023-05-14 10:38 | disposition home or self-care (01) ==
LOC: HO.US 10:37
PROVIDERS: PCP Internal Medicine; Visit Provider Obstetrics & Gynecology
DX: D25.9 Leiomyoma of uterus, unspecified (principal)
CPT/HCPCS: 76830; 76856

== ENCOUNTER 2023-05-26 14:50 | Outpatient (REF) | payer OTHER, SELFPAY ==
--- NOTE | ~2023-05-26 | MM_ITS ---
EXAMINATION: MM SCREENING DIGITAL BREAST TOMOSYNTHESIS, BILATERAL CLINICAL INFORMATION: Screening. Asymptomatic. COMPARISON: Mammography: 08/07/2020, 02/03/2019, 05/21/2017, and 06/02/2012. TECHNIQUE: Digital breast tomosynthesis is performed in both the craniocaudal and mediolateral oblique views along with computer-aided detection (CAD). Synthesized 2D images are generated from the tomosynthesis. FINDINGS: The breasts are heterogeneously dense, which may obscure small masses (ACR BI-RADS breast composition Category c). There is an asymmetric density in the upper slightly outer right breast, posterior one third, for which diagnostic views are recommended to include spot compression 3-D right MLO and CC views, as well as a full-field digital 3-D 90 degree mediolateral view. Ultrasound to be scheduled as required. There are no suspicious abnormalities in the left breast. MM/MM tomosynthesis screening BI IMPRESSION: Focal asymmetric density right breast upper outer quadrant, recommend additional imaging as detailed. ASSESSMENT: BI-RADS BI-RADS 0 - Incomplete: Needs additional Imaging. RECOMMENDATION: 1. Additional views of the right breast 2. Targeted ultrasound if warranted after review of the additional views. 3. Radiology department staff will contact the patient for additional imaging. Additional Imaging required This examination should not preclude the clinical evaluation of a suspicious palpable abnormality. This patient's information was entered into a reminder system with a target due date for their next mammogram.
== END 2023-05-26 14:51 | disposition home or self-care (01) ==
LOC: HO.MAMMO 14:50
PROVIDERS: PCP Internal Medicine; Visit Provider Obstetrics & Gynecology
DX: Z12.31 Encounter for screening mammogram for malignant neoplasm of breast (principal)
CPT/HCPCS: 77063; 77067

== ENCOUNTER → 2023-05-26 15:00 | Outpatient (BNV) | payer OTHER, SELFPAY | PROVIDERS: PCP Internal Medicine; Visit Provider Radiology Diagnostic Radiology | DX: Z12.31 Encounter for screening mammogram for malignant neoplasm of breast (principal) | CPT/HCPCS: 77063; 77067 ==

== ENCOUNTER 2023-06-12 08:10 | Outpatient (REF) | payer OTHER, SELFPAY ==
--- NOTE | ~2023-06-12 | US_ITS ---
EXAMINATION: MM DIAGNOSTIC DIGITAL BREAST TOMOSYNTHESIS, RIGHT US BREAST LIMITED, RIGHT MAMMOGRAPHY: CLINICAL INFORMATION: Follow-up from screening, possible circumscribed mass in the right breast upper outer quadrant, partially obscured by dense breast tissue. COMPARISON: Mammography: 05/26/2023. TECHNIQUE: Digital right breast tomosynthesis is performed in utilizing full-field right 3-D mediolateral view, as well as 3-D spot compression right MLO and right CC views. Along with computer-aided detection (CAD). Synthesized 2D images are generated from the tomosynthesis. FINDINGS: The breasts are heterogeneously dense, which may obscure small masses (ACR BI-RADS breast composition Category c). Spot compression views demonstrate persistence of a circumscribed isodense mass in the upper outer right breast approximately 10:00 position, 8 cm from the nipple. This is also seen on the dedicated full-field right ML view, and localizes to the 10:00 axis. This will be interrogated by ultrasound. No additional abnormalities noted within the right breast aside from milk of calcium in the mid aspect. ULTRASOUND: CLINICAL INFORMATION: Evaluate possible partially obscured mass 10:00 axis right breast. COMPARISON: None TECHNIQUE: Targeted sonographic evaluation was performed using a high frequency linear transducer. Attention was paid to the right breast upper outer quadrant. Selected archived documentation. FINDINGS: RIGHT BREAST: Within the 10:00 axis of the right breast, approximately 8 cm from the nipple, there is a 1.2 x 1.0 x 1.1 cm simple cyst with good through transmission and anechoic echotexture, correlating well with the mammographic focus of concern. This finding is benign. No further follow-up recommended. US/US breast RT limited mamm only IMPRESSION: There are no findings suspicious for malignancy. Simple cyst right breast 10:00 axis, correlating well with the focus of mammographic concern. Finding is benign. Recommend the patient return to routine annual screening mammography. OVERALL ASSESSMENT: Mammography: BI-RADS 2 - Benign Findings Ultrasound: BI-RADS 2 - Benign Findings RECOMMENDATION: 1 year F/U This patient's information was entered into a reminder system with a target due date for their next mammogram.
== END 2023-06-12 08:11 | disposition home or self-care (01) ==
LOC: HO.MAMMO 08:10
PROVIDERS: Visit Provider Internal Medicine
DX: N64.89 Other specified disorders of breast (principal)
CPT/HCPCS: 76642; 77061; 77065

== ENCOUNTER → 2023-06-12 08:30 | Outpatient (BNV) | payer OTHER, SELFPAY | PROVIDERS: Visit Provider Radiology Diagnostic Radiology | DX: N60.01 Solitary cyst of right breast (principal) | CPT/HCPCS: 76642; 77061; 77065 ==

== ENCOUNTER 2023-06-15 10:20 | Outpatient (AMB) | payer OTHER, SELFPAY ==
[2023-06-15 10:30] VITALS: BP 108/64; BMI 26.7
--- NOTE | 2023-06-15 10:30 | MHC.OFFVIS ---
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 Pelvic ultrasound done recently showed the following: The uterus is of normal size and echogenicity measuring 14.0 x 5.3 x 8.6 cm. 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 A regular, homogeneous endometrium is identified measuring 1.4 cm. FIBROIDS: There are 2 fibroids seen. 1. Location: Posterior rightward fundus, subserosal. Size: 4.7 x 4.5 x 5.5 cm. Prior: 5.2 x 3.9 x 6.0 cm. Fibroid characteristics: Heterogeneously hypoechoic. 2. Location: Anterior leftward upper body, myometrial. Size: 1.8 x 1.5 x 1.8 cm. Prior: Not seen. Fibroid characteristics: Hypoechoic. Both ovaries are of normal size and echogenicity. The right measures 3.8 x 2.4 x 2.1 cm for a volume of 10.0 mL. The left measures 3.4 x 1.0 x 2.4 cm for a volume of 4.3 mL. There is no pelvic free fluid. Within the left adnexal region, superolateral to the left ovary, a 5.0 x 2.7 x 4.4 cm fluid-filled tubular structure is seen suspicious for a hydrosalpinx. There is prominent pelvic vasculature, right greater than left. 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 Gender identity: Female Female Reproductive History Menstrual Age of Menarche: 11 Date of last menstrual period: 05/05/23 Date of last pap smear: 07/13/20 (negative) Review of Systems Const All systems reviewed & are unremarkable except as noted in HPI and below Reports as per HPI and Reports no additional complaints GI Reports no additional complaints Reports no additional complaints Physical Exam Vital Signs: Last Vital Signs BP 108/64 06/15/23 10:30 BMI result Body Mass Index 26.7 Assessment & Plan Assessment & Plan (1) Myoma: Code(s): D21.9 - Benign neoplasm of connective and other soft tissue, unspecified Plan: Discussed with the patient the findings on pelvic ultrasound & the risk of myosarcoma; discussed with the patient the options of treatment including expectant management versus hysterectomy; the pros and cons, risks benefits of each approach were discussed with the patient including the fact that in cases of myosarcoma, surgical treatment can lead to early diagnosis and positively affects the prognosis; after further discussion, the patient decided to proceed with expectant management. Will repeat pelvic ultrasound periodically. Instructions given to patient to call in case any of the following occurs: pressure symptoms, abnormal uterine bleeding, pelvic pain; and to schedule a future office follow-up appointment for reassessment and to order a repeat ultrasound . All questions answered, the patient verbalized understanding and agreed with the plan . (2) Hydrosalpinx: Code(s): N70.11 - Chronic salpingitis Plan: Discussed with the patient the finding on ultrasound showing hydrosalpinx, causes of hyper segments were discussed with the patient, since the patient has no pelvic pain, expectant management is recommended. Instructions given the patient to call in case of pelvic pain, fever or abnormal vaginal discharge. All questions answered, the patient verbalized understanding. (3) Pelvic congestion: Code(s): N94.89 - Other specified conditions associated with female genital organs and menstrual cycle Plan: Discussed with the patient the finding on ultrasound showing pelvic congestion, causes of pelvic congestion were discussed with the patient. Since the patient does not have pelvic pain, expectant management is recommended. All questions answered, the patient verbalized understanding and agreed with the plan. Coding Level of Care Code Est Pt Level 3 (21541) Diagnoses Myoma D21.9 Hydrosalpinx N70.11 Pelvic congestion N94.89
== END 2023-06-15 12:50 | disposition home or self-care (01) ==
PROVIDERS: PCP Internal Medicine; Visit Provider Obstetrics & Gynecology
DX: D21.9 Benign neoplasm of connective and other soft tissue, unspecified (principal); N70.11 Chronic salpingitis; N94.89 Other specified conditions associated with female genital organs and menstrual cycle
CPT/HCPCS: 99213

== ENCOUNTER → 2023-06-15 10:20 | Outpatient (BNVA) | payer OTHER, SELFPAY | PROVIDERS: PCP Internal Medicine; Visit Provider Obstetrics & Gynecology ==

== ENCOUNTER 2023-06-25 08:08 | Outpatient (AMB) | payer OTHER, SELFPAY ==
--- NOTE | 2023-06-25 08:21 | MHC.OFFVIS ---
Intake Vital Signs 06/25/23 08:30 Height 5 ft 2 in Weight 142 lb BMI 26.0 BP 99/53 L Blood Pressure Location Lt brachial Position Sitting Pulse 65 Intake Visit Reasons: Colonoscopy Screening Intake Note: Patient new consult for 1st pre colonoscopy screening. Patient cc: abdominal bloating on and off. Denies any other GI issues. Government Minister Required: No Accompanied by: Self / Same As Patient Allergies No Known Allergies Allergy (Unknown, Verified 06/25/23 08:20) UNKNOWN Medication List - Last Reconciled 06/25/23 by Padma Mao PA-C albuterol sulfate 90 mcg/actuation 2 puffs PO Q4H PRN budesonide mg inhalation loratadine (Claritin) 10 mg PO DAILY montelukast 10 mg PO DAILY nystatin mL PO HPI HPI Comments History of Present Illness Details A 48 y/o female referred for screening colonoscopy Appetite typically good, however recent Visiline- so lost about 5 pounds-getting use to them-will improve Anai- had diarrhea - but it has improved-she does at times have loose stool with urgency Asthma -well controlled No nausea, vomiting hematemesis, hematochezia abdominal pain fever chills PFSH Medical History Herpes Seasonal allergies Asthma Surgical History History of sinus surgery History of cholecystectomy History of hernia repair History of appendectomy Family History Other Asthma Social History Household Members: Children Housing: House Alcohol intake: never Patient Tobacco Use Status: Never used Tobacco 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 Gender identity: Female Female Reproductive History Menstrual Age of Menarche: 11 Review of Systems Const All systems reviewed & are unremarkable except as noted in HPI and below Card Denies chest pain and Denies dyspnea Resp Denies dyspnea GI Denies abdominal pain, Denies hematochezia, Reports loose stools, Denies nausea and Denies vomiting Physical Exam Vital Signs: Last Vital Signs Pulse 65 06/25/23 08:30 BP 99/53 L 06/25/23 08:30 BMI result Body Mass Index 26.0 Const General: cooperative, healthy appearing and comfortable Orientation/consciousness: patient oriented x3 Limitations: no limitations Resp Effort & Inspection: normal respiratory effort and able to speak in complete sentences Auscultation: rhonchi and wheezes (mild) Cardio Rate: regular rate Rhythm: regular rhythm Heart sounds: S1 normal heart sound present and S2 normal heart sound present GI Palpation (GI): Soft to palpation and nontender Auscultation: normal bowel sounds Skin General skin exam: no rashes or lesions noted Neuro General: patient oriented x3 Extrem General: Yes full ROM Psych Appearance: grossly normal and well kempt Mental Status: mental status grossly normal Speech and movement: Normal speech and movement present and Clear speech present Affect: normal affect Attitude: cooperative Thought process: Normal thought process present Thought content: Normal thought content present Insight: Good insight present (Psych) Judgement: Good judgement present (Psych) Assessment & Plan Assessment & Plan (1) Encounter for screening colonoscopy: Code(s): Z12.11 - Encounter for screening for malignant neoplasm of colon Plan: index screening colonoscopy (2) Loose stools: Comment: Loose stool has improved Code(s): R19.5 - Other fecal abnormalities Plan: Trial of Imodium-she will call with progress Plan Index screening colonoscopy, MiraLax Gatorade split prep-literature given Maintain high fiber diet Fiber supplement Imodium She will call with progress Orders: Orders Colonoscopy - GI Use Only Today Z12.11 - Encounter for screening for malignant neoplasm of colon Medications: New polyethylene glycol 3350 (Miralax) Take as directed by mouth the day before your procedure. 238 grams PO ONCE 1 day PRN 238 grams 0RF laxative effect loperamide (Imodium A-D) 2 mg PO Q6H PRN 30 tabs 1RF loose stool bisacodyl (Dulcolax (bisacodyl)) Day before procedure, prep day Take 4 tablets by mouth upon awakening followed by large glass of water 20 mg (4 x 5 mg) PO ONCE 1 day 4 tabs 0RF colonoscopy prep Z12.11 - Encounter for screening for malignant neoplasm of colon methylcellulose (laxative) (Citrucel) 500 mg PO TID 90 tabs 5RF Patient Instructions: Very pleasant 48-year-old female referred for Index screening colonoscopy, MiraLax Gatorade split prep-literature given Maintain high fiber diet Fiber supplement Imodium She will call with progress Coding Level of Care Code New Pt Level 3 (43863) Diagnoses Encounter for screening colonoscopy Z12.11 Loose stools R19.5 Time Spent (min) 30
[2023-06-25 08:30] VITALS: BP 99/53; PULSE 65; BMI 26.0
== END 2023-06-25 09:54 | disposition home or self-care (01) ==
PROVIDERS: PCP Internal Medicine; Visit Provider Physician Assistant
DX: Z12.11 Encounter for screening for malignant neoplasm of colon (principal); R19.5 Other fecal abnormalities; Z01.818 Encounter for other preprocedural examination
CPT/HCPCS: 99203

== ENCOUNTER → 2023-06-25 08:08 | Outpatient (BNVA) | payer OTHER, SELFPAY | PROVIDERS: PCP Internal Medicine; Visit Provider Physician Assistant ==

== ENCOUNTER 2023-09-07 09:10 | Outpatient (AMB) | payer OTHER, SELFPAY ==
[2023-09-07 09:40] VITALS: BP 110/60; PULSE 9; TEMP 36.1; O2SAT 99; BMI 26.2
--- NOTE | 2023-09-07 09:40 | MHC.OFFWIV ---
Intake Vital Signs 09/07/23 09:40 Height 5 ft 2 in Weight 143 lb BMI 26.2 BP 110/60 Blood Pressure Location Lt brachial Position Sitting Pulse 9 L Pulse Source Pulse Oximeter Temp 97.0 F Temp Source Temporal Artery Scan Pulse Oximetry (%) 99 Oxygen Delivery Method Room Air Intake Visit Reasons: EST/body aches/ coughs ([phone]) Patient Tobacco Use Status: Never used Tobacco Allergies No Known Allergies Allergy (Unknown, Verified 09/07/23 09:40) UNKNOWN Do you need a note to return to daycare/school/sports/work: Yes HPI HPI Comments History of Present Illness Details Suly presents to the walk-in clinic today for sick visit. C/O cough, congestion, body aches and fatigue for last week. Patient known exposure to RSV. Patient has asthma, she has been using her albuterol MDI as needed. States using 4 times daily with good effect. Denies chest pain, dizziness, weakness, palpitations. Patient concerned about going to work with persistent cough and exposing others. 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 Answers questions appropriately. Fully engaged in examination. Skin: warm, dry, intact HEENT: TMs intact bilaterally, no redness. Posterior pharynx without erythema or exudate. Sclera without icterus or injection. Cardiac: External chest normal in appearance. Respiratory: +non-productive cough. Inspiratory and expiratory wheezing noted throughout. Abdomen: without gross distension. Neurological: Oriented to person, place, time and situation. Thought process intact. Psychiatric: Appropriate mood and affect. Good judgment and insight. Results Reviewed Results Reviewed: XR chest 2 views ordered and reviewed: no infiltrate visualized Assessment & Plan Assessment & Plan (1) URI (upper respiratory infection): Code(s): J06.9 - Acute upper respiratory infection, unspecified (2) Contact with or exposure to viral disease: Code(s): Z20.828 - Contact with and (suspected) exposure to other viral communicable diseases Plan URI, no abx warranted. CXR ordered, reviewed with Dr Prasad, no infiltrate visualized. SARS-CoV2/FLU/RSV swab collected, results pending. Patient aware she will be called with results. Benzonatate 100mg po bid as needed C/W inhaler as needed Work note provided Follow up with pcp or in clinic for any new or worsening symptoms. Go to ER for shortness of breath not resolved with MDI, if using MDI more than prescribed, chest pain, palpitations, weakness, dizziness. Orders: Orders SARS-CoV2/FLU/RSV Today J06.9 - Acute upper respiratory infection, unspecified XR chest 2V Today R05.9 - Cough, unspecified Medications: New benzonatate 100 mg PO BID PRN 20 caps 0RF cough Coding Level of Care Code Est Pt Level 4 (75813) Diagnoses URI (upper respiratory infection) J06.9 Contact with or exposure to viral disease Z20.828
== END 2023-09-07 11:14 | disposition home or self-care (01) ==
PROVIDERS: PCP Internal Medicine; Visit Provider Registered Nurse Emergency
DX: J06.9 Acute upper respiratory infection, unspecified (principal); Z20.828 Contact with and (suspected) exposure to other viral communicable diseases
CPT/HCPCS: 99214

== ENCOUNTER 2023-09-07 10:18 | Outpatient (REF) | payer OTHER, SELFPAY ==
[2023-09-07 14:30] LABS: Influenza A PCR POSITIVE (Negative); Influenza B PCR NEGATIVE (Negative); Resp Syncy Virus RNA Qual PCR NEGATIVE (Negative); SARS COV2 PCR INHOUSE NEGATIVE (Negative)
== END 2023-09-07 10:19 | disposition home or self-care (01) ==
LOC: HO.LAB 10:18
PROVIDERS: Visit Provider Registered Nurse Emergency
DX: Z11.52 Encounter for screening for COVID-19 (principal); J06.9 Acute upper respiratory infection, unspecified
CPT/HCPCS: 0241U

== ENCOUNTER 2023-09-07 10:24 | Outpatient (REF) | payer OTHER, SELFPAY ==
--- NOTE | ~2023-09-07 | XR_ITS ---
EXAMINATION: XR CHEST CLINICAL INFORMATION: Cough. COMPARISON: None available. TECHNIQUE: 2 views of the chest were obtained. FINDINGS: The lungs are well expanded. No focal consolidation. No pleural effusion. Cardiac silhouette is within normal limits. XR/XR chest 2V IMPRESSION: No acute abnormality.
== END 2023-09-07 10:25 | disposition home or self-care (01) ==
LOC: HO.HMGCX 10:24
PROVIDERS: PCP Internal Medicine; Visit Provider Registered Nurse Emergency
DX: R05.9 Cough, unspecified (principal)
CPT/HCPCS: 71046

== ENCOUNTER 2023-11-27 08:55 | Day surgery (SDC) | payer OTHER, SELFPAY ==
--- NOTE | 2023-11-25 15:15 | HO.ANESPROP2 ---
Documented by User: María Jay NP 11/25/23 15:15 HPI - Anesthesia Eval Consult details Narrative: 48yo F for Colonoscopy PMFSH Active Problems Active Problems: All Active Problems (Updated 09/07/23 @ 11:23 by Marsha Grider APRN, [employer]) Contact with or exposure to viral disease (Acute) URI (upper respiratory infection) (Acute) Cough (Acute) Loose stools (Acute) Encounter for screening colonoscopy (Acute) Pelvic congestion (Acute) Hydrosalpinx (Acute) Complex ovarian cyst (Acute) Pelvic pain (Acute) Myoma (Acute) Well woman exam (Acute) Past Medical History Medical History Herpes Seasonal allergies Asthma Family History Family History Other Asthma Surgical History Surgical History History of sinus surgery History of cholecystectomy History of hernia repair History of appendectomy Social History Social History Household Members: Children Housing: House Alcohol intake: never Patient Tobacco Use Status: Current someday Tobacco user Tobacco use type: Cigarette Date Education Initiated: 11/27/23 Use of substances other than those prescribed or required for medical reasons: No Advance Directives: No Advance Directives Information Provided: Yes 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 Gender identity: Female Meds Allergies Allergy/AdvReac Type Severity Reaction Status Date / Time No Known Allergies Allergy Unknown UNKNOWN Verified 09/07/23 09:40 Home Medications Medication Instructions Recorded Confirmed Last Taken Type albuterol sulfate 90 mcg/actuation 2 puff PO Q4H PRN 07/12/20 11/12/20 Unknown History aerosol inhaler loratadine 10 mg tablet (Claritin) 10 mg PO DAILY 07/12/20 11/12/20 Unknown History montelukast 10 mg tablet 10 mg PO DAILY 03/13/22 Unknown History budesonide 0.5 mg/2 mL suspension mg inhalation 04/28/23 Unknown History for nebulization nystatin 100,000 unit/mL oral ml PO 04/28/23 Unknown History suspension Assessment and Plan Assessment Anesthesia Assessment: Chart Reviewed Documented by User: Jessi Aleman MD 11/27/23 10:13 [facility] Past Medical History Medical History Herpes Seasonal allergies Asthma Family History Family History Other Asthma Family history of problems with anesthesia: No Surgical History Surgical History History of sinus surgery History of cholecystectomy History of hernia repair History of appendectomy History of Problems with Anesthesia: No Social History Social History Household Members: Children Housing: House Alcohol intake: never Patient Tobacco Use Status: Current someday Tobacco user Tobacco use type: Cigarette Date Education Initiated: 11/27/23 Use of substances other than those prescribed or required for medical reasons: No Advance Directives: No Advance Directives Information Provided: Yes 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 Gender identity: Female Meds Allergies Allergy/AdvReac Type Severity Reaction Status Date / Time No Known Allergies Allergy Unknown UNKNOWN Verified 09/07/23 09:40 Home Medications Medication Instructions Recorded Confirmed Last Taken Type albuterol sulfate 90 mcg/actuation 2 puff PO Q4H PRN 07/12/20 11/12/20 Unknown History aerosol inhaler loratadine 10 mg tablet (Claritin) 10 mg PO DAILY 07/12/20 11/12/20 Unknown History montelukast 10 mg tablet 10 mg PO DAILY 03/13/22 Unknown History budesonide 0.5 mg/2 mL suspension mg inhalation 04/28/23 Unknown History for nebulization nystatin 100,000 unit/mL oral ml PO 04/28/23 Unknown History suspension Exam Airway Mallampati Class: II (visiline) TM Dist: >3cm Neck ROM: Full Heart: rrr Lungs: cta Assessment and Plan Assessment Anesthesia Assessment: Anesthesia Plan Discussed Final Anesthetic Review Family History of Problems with Anesthesia: No History of Problems with Anesthesia: No NPO: Yes ASA Class: II Final Preanesthetic Review: No Changes in Pt Med Stat, Meds/Allgs Chart Reviewed and Consent Obtained/Reviewed Patient Risk: Low Procedure Risk: Low Anesthetic Plan Anesthetic Plan: MAC: Disposition: Standard PACU
[2023-11-27 09:22] VITALS: BP 111/62; PULSE 75; RESP 18; TEMP 37.3; O2SAT 97; BMI 21.9
--- NOTE | 2023-11-27 09:22 | MHC.SHP ---
Pre-Procedural Eval Section A - 24 Hr Update-Section A only Date of Service: 11/27/23 The patient is an INPATIENT: No The patient has been examined within 24 hours of the surgical procedure. The History & Physical has been completed within 30 days and I have reviewed it.: No Section B - Complete if H&P > 30 days Chief Complaint: screening Relevant Family History (Specify if Yes): No Relevant Social History: None Present Medications: see Short Stay Collaborative assessment Medical History: Significant History (Herpes Seasonal allergies Asthma) History of Previous Operations: Relevant previous surgery/procedure and date(s) (History of sinus surgery History of cholecystectomy History of hernia repair History of appendectomy) Allergies: Allergies Allergy/AdvReac Type Severity Reaction Status Date / Time No Known Allergies Allergy Unknown UNKNOWN Verified 09/07/23 09:40 Review of Systems Sugical H&P ROS: Negative: Constitution, Cardiovascular, Respiratory and Gastrointestinal Exam Surgical H&P Exam: Normal: Heart, Normal: Lungs, Normal: Extremities and Normal: Abdomen Plan Diagnosis/Plan: Unchanged I have reviewed the history and physical and performed a pertinent physical examination on my patient. No changes have occurred unless specified. Time Spent With Patient Time: Total time managing care of this patient today ____ minutes.
[2023-11-27 09:23] LABS: UPreg QC Valid YES; Urine Pregnancy NEGATIVE (NEGATIVE)
[2023-11-27 09:44] VITALS: BP 111/62; PULSE 75; RESP 18; TEMP 37.3; O2SAT 97
[2023-11-27] MEDS: Lactated Ringers 1,000 ML 100 ML IVCONT (09:46)
--- NOTE | 2023-11-27 10:15 | P.OP_ITS ---
Operative Note Operative Note Date of Service: 11/27/23 Narrative: COLONOSCOPY TILL CECUM Pre-op diagnosis: Colon cancer screening - first colonoscopy. Post-op diagnosis:? Diverticulosis, hemorrhoids Endoscopist:? Radha Cancino MD Anesthesia:?MAC Consent: Indications for the procedure and potential complications of bleeding, perforation, reaction to medications and missed diagnosis were discussed with the patient and informed consent was obtained. Instrument: Olympus PCF H 190 L variable stiffness pediatric colonoscope Monitoring: Vital signs and clinical assessment, intermittent blood pressure monitoring, continuous EKG monitoring, Pulse oximetry and Carbon Dioxide monitoring were done throughout the procedure. Please see anesthesia flowsheet. Colon withdrawl time was 12 minutes. Procedure: The patient was placed in the left lateral decubitis position and pre-procedure medications were administered. After a digital rectal examination of the ano-rectum, the video colonoscope was inserted into the rectum and advanced through the colon to the cecum. The colonoscope was slowly withdrawn in a retrograde panoramic fashion and the colon mucosa was carefully examined including a retroflexed view of the rectum. Findings and interventions are described below. Procedure Difficulty: without difficulty Findings: Terminal Ileum: Not evaluated Cecum: Normal Ascending Colon: Normal Transverse Colon: Normal Descending Colon: Normal Sigmoid Colon: Mild diverticulosis Rectum: Normal Ano-rectum: Normal Colon preparation: Good. There was scattered undigested vegetable matter which could not be suctioned. [place] Bowel Preparation Scale Right colon; 2 Transverse colon: 2 Left colon; 2 (0 = Unprepared colon segment with mucosa not seen due to solid stool that cannot be cleared. 1 = Portion of mucosa of the colon segment seen, but other areas of the colon segment not well seen due to staining, residual stool and/or opaque liquid. 2 = Minor amount of residual staining, small fragments of stool and/or opaque liquid, but mucosa of colon segment seen well. 3 = Entire mucosa of colon segment seen well with no residual staining, small fragments of stool or opaque liquid) Impression and Post Procedure Diagnosis: Colonoscopy Findings: No polyps were detected Mild diverticulosis seen in the sigmoid colon Plan: Pt has a FU appointment on 12/14/23 with Svitlana Carlton NP. Repeat Colonoscopy in 10 years. Above findings were reviewed with the patient and relevant handouts were given and the discharge area.
[2023-11-27 10:44] VITALS: BP 93/60; PULSE 84; RESP 16; TEMP 36.3; O2SAT 95
[2023-11-27 11:00] VITALS: BP 102/56; PULSE 76; RESP 16; O2SAT 95
[2023-11-27 11:15] VITALS: BP 104/56; PULSE 72; RESP 20; TEMP 36.1; O2SAT 99
== END 2023-11-27 11:35 | disposition home or self-care (01) ==
PROVIDERS: Nurse Practitioner; PCP Internal Medicine; Visit Provider Internal Medicine Gastroenterology
PROC: 0DJD8ZZ Inspection of Lower Intestinal Tract, Via Natural or Artificial Opening Endoscopic (ICD-10-PCS; CPT 45378; principal; 2023-11-27 10:10)
DX: Z12.11 Encounter for screening for malignant neoplasm of colon (principal); K57.30 Diverticulosis of large intestine without perforation or abscess without bleeding; K64.8 Other hemorrhoids; J45.909 Unspecified asthma, uncomplicated; B00.9 Herpesviral infection, unspecified; Z79.51 Long term (current) use of inhaled steroids; Z79.899 Other long term (current) drug therapy; Z98.890 Other specified postprocedural states; Z90.49 Acquired absence of other specified parts of digestive tract; F17.210 Nicotine dependence, cigarettes, uncomplicated
CPT/HCPCS: 45378; 81025; J2704

== ENCOUNTER → 2023-11-27 08:55 | Outpatient (BNV) | payer OTHER, SELFPAY | PROVIDERS: PCP Internal Medicine; Visit Provider Internal Medicine Gastroenterology | DX: Z12.11 Encounter for screening for malignant neoplasm of colon (principal); K57.90 Diverticulosis of intestine, part unspecified, without perforation or abscess without bleeding; K64.8 Other hemorrhoids | CPT/HCPCS: 45378 ==

== ENCOUNTER 2023-12-10 08:32 | Outpatient (AMB) | payer OTHER, SELFPAY ==
--- NOTE | 2023-12-10 08:35 | A.OFFVIS_ITS ---
Intake Vital Signs 12/10/23 08:45 Height 5 ft 2 in Weight 136 lb 10.986 oz BMI 25.0 BP 97/63 Blood Pressure Location Lt brachial Position Sitting Pulse 67 Intake Visit Reasons: S/p colon Intake Note: Suly presents in the office as a follow up colonoscopy. CC: She states that she is not having any concerns. Director Of Slot Operations Required: No Allergies No Known Allergies Allergy (Unknown, Verified 09/07/23 09:40) UNKNOWN Medication List - Last Reconciled 12/10/23 by Padma Mao PA-C albuterol sulfate 90 mcg/actuation 2 puffs PO Q4H PRN benzonatate 100 mg PO BID PRN budesonide mg inhalation fluticasone propionate 50 mcg/actuation sprays intranasal loratadine (Claritin) 10 mg PO DAILY methylcellulose (laxative) (Citrucel) 500 mg PO TID montelukast 10 mg PO DAILY nystatin mL PO valacyclovir 1,000 mg PO DAILY HPI HPI Comments History of Present Illness Details A 48 y/o female f/u after index screening colonoscopy Tolerated well- Citrucel- good response-stool more consistent No GI complaints Reviewed procedure report and recommendation Diverticulosis/diverticulitis Appetite is good bowels are normal No nausea, vomiting, hematemesis, hematochezia fever or chills PFSH Medical History Herpes Seasonal allergies Asthma Surgical History Hx of colonoscopy History of sinus surgery History of cholecystectomy History of hernia repair History of appendectomy Family History Other Asthma Social History Household Members: Children Housing: House Alcohol intake: never Patient Tobacco Use Status: Current someday Tobacco user Tobacco use type: Cigarette 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 Gender identity: Female Female Reproductive History Menstrual Age of Menarche: 11 Review of Systems Const All systems reviewed & are unremarkable except as noted in HPI and below Physical Exam Vital Signs: Last Vital Signs Pulse 67 12/10/23 08:45 BP 97/63 12/10/23 08:45 BMI result Body Mass Index 25.0 Const General: cooperative, healthy appearing, comfortable and well groomed Orientation/consciousness: patient oriented x3 Eyes Sclerae: sclerae normal Resp Effort & Inspection: normal respiratory effort and able to speak in complete sentences Skin General skin exam: no rashes or lesions noted Neuro General: patient oriented x3 Extrem General: Yes full ROM Psych Appearance: grossly normal and well kempt Mental Status: mental status grossly normal Speech and movement: Normal speech and movement present and Clear speech present Attitude: cooperative Thought process: Normal thought process present Thought content: Normal thought content present Insight: Good insight present (Psych) Judgement: Good judgement present (Psych) Results Reviewed Results Reviewed: Impression and Post Procedure Diagnosis: Colonoscopy Findings: No polyps were detected Mild diverticulosis seen in the sigmoid colon Plan: Pt has a FU appointment on 12/14/23 with Svitlana Carlton NP. Repeat Colonoscopy in 10 years. Assessment & Plan Assessment & Plan (1) Diverticulosis of colon: Comment: Very pleasant 48-year-old female follows up after index screening colonoscopy Reviewed procedure report recommendedations Code(s): K57.30 - Diverticulosis of large intestine without perforation or abscess without bleeding Plan: Repeat asymptomatic colonoscopy 10 years Maintain high-fiber diet ER protocol Plan 10 year colonoscopy ER protocol High-fiber diet Continue citrucel Patient Instructions: Repeat asymptomatic colonoscopy 10 years sooner if indicated Discussed diverticulosis/diverticulitis ER protocol Foods to avoid-nuts, corn popcorn, seeds etc Avoid constipation Maintain high-fiber diet Coding Level of Care Code Est Pt Level 3 (45201) Diagnoses Diverticulosis of colon K57.30 Time Spent (min) 20
[2023-12-10 08:45] VITALS: BP 97/63; PULSE 67; BMI 25.0
== END 2023-12-10 09:34 | disposition home or self-care (01) ==
PROVIDERS: PCP Internal Medicine; Visit Provider Physician Assistant
DX: K57.30 Diverticulosis of large intestine without perforation or abscess without bleeding (principal)
CPT/HCPCS: 99213

== ENCOUNTER → 2023-12-10 08:32 | Outpatient (BNVA) | payer OTHER, SELFPAY | PROVIDERS: PCP Internal Medicine; Visit Provider Physician Assistant ==

== ENCOUNTER 2024-02-08 09:35 | Outpatient (AMB) | payer OTHER, SELFPAY ==
[2024-02-08 09:36] VITALS: BP 110/70; BMI 25.0
--- NOTE | 2024-02-08 09:36 | A.OFFVIS_ITS ---
Vital Signs 02/08/24 09:36 Height 5 ft 2 in Weight 136 lb 10.986 oz BMI 25.0 BP 110/70 Intake Visit Reasons: AUB Account Service Representative Required: No Information Interpreted: non-clinical & clinical Household Appliances Service Technician: Household Appliances Service Technician Present (Ekaterina GALEANO) Accompanied by: Self / Same As Patient Allergies No Known Allergies Allergy (Unknown, Verified 02/08/24 09:51) UNKNOWN HPI Comments Details: The patient is presenting c/o irregular bleeding associated with passage of blood clots and abdominal cramping. it started few months ago and is getting worse no other associated symptoms. 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 Gender identity: Female Female Reproductive History Menstrual Age of Menarche: 11 Review of Systems Const All systems reviewed & are unremarkable except as noted in HPI and below Card Reports as per HPI Resp Reports as per HPI GI Reports as per HPI and Reports no additional complaints Reports as per HPI Physical Exam Vital Signs: Last Vital Signs BP 110/70 02/08/24 09:36 BMI result Body Mass Index 25.0 Const General: cooperative, healthy appearing and comfortable Chest Chest palpation & inspection: normal inspection of the chest and normal palpation of entire chest wall Breast/axilla inspection: normal inspection of the breasts and normal inspection of the axillae Breast/axilla palpation: normal palpation of the breasts, normal palpation of the axillae and no axillary lymphadenopathy Resp Effort & Inspection: normal respiratory effort Auscultation: clear to auscultation bilaterally Percussion: percussion normal Cardio Palpation: normal PMI Rate: regular rate Rhythm: regular rhythm Heart sounds: no murmurs and no rubs Peripheral pulses: Peripheral pulses 2+ throughout GI Inspection: Yes normal to inspection Palpation (GI): Soft to palpation, nontender, no guarding, not rigid and No hepatosplenomegaly present Percussion: Yes normal to percussion Auscultation: normal bowel sounds Rectal Exam - Female: deferred General: Yes bladder normal to palpation External Female Exam: No lesion Speculum Exam - Vagina: normal appearance of the vagina, normal palpation, normal vaginal discharge and not erythematous Speculum Exam - Cervix: normal appearance of the cervix and normal palpation Bimanual exam- vagina & uterus: normal bimanual exam, normal palpation, uterine size normal, bladder normal to palpation, consistency normal and normal palpation Bimanual Exam- Adnexa, other: normal adnexae, no masses and no tenderness Results AMB Test Urine AMB Test Urine Negative Last Edit by Ekaterina Judd CMA on 09:52 Results Reviewed Results Reviewed: Laboratory Last Values Tst Clinic Negative 02/08/24 09:52 Assessment & Plan Assessment & Plan (1) Abnormal uterine bleeding: Code(s): N93.9 - Abnormal uterine and vaginal bleeding, unspecified Category: Medical Plan: Co testing done, GC and chlamydia taken CBC, TSH, prolactin, FSH/LH, HCG, and pelvic ultrasound ordered. Discussed with the patient the different causes of abnormal bleeding including thyroid disorders, uterine and ovarian pathology, endometrial hyperplasia, carcinoma and other potential causes. Discussed with the patient the work up including CBC (to r/o anemia), TSH, FSH/LH prolactin, pelvic Ultrasound, endometrial biopsy to r/o endometrial pathology. All questions answered and the patient verbalized understanding. Instructed the patient to schedule an appointment for an endometrial biopsy in 2 weeks. Orders: Orders AMB HCG Urine Test Today Z32.02 - Encounter for test, result negative TSH reflex Free T4 Today N93.9 - Abnormal uterine and vaginal bleeding, unspecified Prolactin Today N93.9 - Abnormal uterine and vaginal bleeding, unspecified HCG Quantitative Today N93.9 - Abnormal uterine and vaginal bleeding, unspecified Lutenizing Hormone Today N93.9 - Abnormal uterine and vaginal bleeding, unspecified Follicle Stimulating Hormone Today N93.9 - Abnormal uterine and vaginal bleeding, unspecified Complete Blood Count no Diff Today N93.9 - Abnormal uterine and vaginal bleeding, unspecified US pelvic and transvaginal Today N93.9 - Abnormal uterine and vaginal bleeding, unspecified Coding Level of Care Code Est Pt Level 3 (24053) Diagnoses Abnormal uterine bleeding N93.9
== END 2024-02-08 10:51 | disposition home or self-care (01) ==
LOC: HO.HWS 09:35
PROVIDERS: PCP Internal Medicine; Visit Provider Obstetrics & Gynecology
DX: Z32.02 Encounter for pregnancy test, result negative (principal); N93.9 Abnormal uterine and vaginal bleeding, unspecified
CPT/HCPCS: 99213

== ENCOUNTER 2024-02-08 09:35 | Outpatient (REF) | payer OTHER, SELFPAY ==
[2024-02-08 10:43] LABS: Hematocrit 38.7 % (37.0-47.0); Hemoglobin 12.7 g/dl (12.0-16.0); Mean Corpuscular HGB Conc 32.8 g/dl (31.0-35.0); Mean Corpuscular Hemoglobin 27.9 pg (27.0-33.0); Mean Corpuscular Volume 85.1 fL (80.0-98.0); Mean Platelet Volume 11.3 fL (9.4-12.3); Platelet Count 301 X10*3/uL (160-400); Red Blood Count 4.55 X10*6/uL (4.20-5.50); Red Cell Distribution Width 13.9 % (11.0-16.0); White Blood Count 7.5 X10*3/uL (4.8-10.8)
[2024-02-08 11:27] LABS: HCG Quantitative < 2 mIU/mL; TSH reflex Free T4 1.09 uIU/mL (0.32-4.0)
[2024-02-08 13:48] LABS: CT PCR NOT DETECTED (Not Detect.); NG PCR NOT DETECTED (Not Detect.)
[2024-02-09 11:14] LABS: Follicle Stimulating Hormone 4.3 mIU/mL; Lutenizing Hormone 1.8 mIU/mL; Prolactin 6.5 ng/mL
== END 2024-02-08 09:36 | disposition home or self-care (01) ==
LOC: HO.LAB 09:35
PROVIDERS: PCP Internal Medicine; Visit Provider Obstetrics & Gynecology
DX: Z32.02 Encounter for pregnancy test, result negative (principal); N93.9 Abnormal uterine and vaginal bleeding, unspecified; Z20.2 Contact with and (suspected) exposure to infections with a predominantly sexual mode of transmission
CPT/HCPCS: 0353U; 36415; 81025; 83001; 83002; 84146; 84443; 84702; 85027

== ENCOUNTER 2024-04-27 14:19 | Outpatient (REF) | payer OTHER, SELFPAY ==
--- NOTE | ~2024-04-27 | XR_ITS ---
EXAMINATION: TWO-VIEW CHEST X-RAY. PARANASAL SINUS STUDY. CLINICAL INFORMATION: Sinus pressure, nasal polyps. Difficulty breathing. COMPARISON: Chest x-ray of September 07, 2023. Paranasal sinus study of October 07, 2007 TECHNIQUE: Two-view chest. 6 few paranasal sinuses. FINDINGS: Chest: There is no evidence of acute parenchymal disease, pneumothorax, or pleural effusion. Heart normal size. No evidence of pulmonary edema. Paranasal sinuses: The frontal sinuses are hypoplastic. No air-fluid levels are seen within the paranasal sinuses. There is prominent mucosal thickening seen within the maxillary sinuses bilaterally, right greater than left. There is near complete opacification of the right maxillary sinus and therefore acute sinusitis cannot be excluded. Mastoid air cells appear aerated. XR/XR sinus min 3V IMPRESSION: No acute disease within the chest. Findings consistent with chronic sinusitis within the maxillary sinuses without definite air-fluid levels appreciated.
--- NOTE | ~2024-04-27 | XR_ITS ---
EXAMINATION: TWO-VIEW CHEST X-RAY. PARANASAL SINUS STUDY. CLINICAL INFORMATION: Sinus pressure, nasal polyps. Difficulty breathing. COMPARISON: Chest x-ray of September 07, 2023. Paranasal sinus study of October 07, 2007 TECHNIQUE: Two-view chest. 6 few paranasal sinuses. FINDINGS: Chest: There is no evidence of acute parenchymal disease, pneumothorax, or pleural effusion. Heart normal size. No evidence of pulmonary edema. Paranasal sinuses: The frontal sinuses are hypoplastic. No air-fluid levels are seen within the paranasal sinuses. There is prominent mucosal thickening seen within the maxillary sinuses bilaterally, right greater than left. There is near complete opacification of the right maxillary sinus and therefore acute sinusitis cannot be excluded. Mastoid air cells appear aerated. XR/XR chest 2V IMPRESSION: No acute disease within the chest. Findings consistent with chronic sinusitis within the maxillary sinuses without definite air-fluid levels appreciated.
== END 2024-04-27 14:20 | disposition home or self-care (01) ==
LOC: HO.XRAY 14:19
PROVIDERS: PCP Internal Medicine; Visit Provider Internal Medicine
DX: J45.909 Unspecified asthma, uncomplicated (principal); R05.9 Cough, unspecified; J33.9 Nasal polyp, unspecified; J34.89 Other specified disorders of nose and nasal sinuses
CPT/HCPCS: 70220; 71046

== ENCOUNTER 2024-08-03 12:21 | Outpatient (AMB) | payer OTHER, SELFPAY ==
--- NOTE | 2024-08-03 12:24 | A.OFFVIS_ITS ---
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 Complaining of heavy irregular menstrual cycles associated with pelvic cramping and pressure Last Pap/HPV was negative in 07/10 Last Mammogram was BI-RADS 2 in 06/13 Last Colonoscopy was done in 12/12, the recommendation was to repeat in 10 years [facility] Medical History Herpes Seasonal allergies Asthma Surgical History Hx of colonoscopy History of sinus surgery History of cholecystectomy History of hernia repair History of appendectomy Family History Other Asthma Social History Household Members: Children Housing: House Alcohol intake: never Patient Tobacco Use Status: Current someday Tobacco user Tobacco use type: Cigarette 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 Gender identity: Female Female Reproductive History Menstrual Age of Menarche: 11 Date of last menstrual period: 07/19/24 Date of last pap smear: 07/13/20 Date of Mammogram: 06/12/23 Review of Systems Const All systems reviewed & are unremarkable except as noted in HPI and below Card Reports as per HPI Resp Reports as per HPI GI Reports as per HPI and Reports no additional complaints Reports as per HPI Physical Exam Const General: cooperative, healthy appearing and comfortable Chest Chest palpation & inspection: normal inspection of the chest and normal palpation of entire chest wall Breast/axilla inspection: normal inspection of the breasts and normal inspection of the axillae Breast/axilla palpation: normal palpation of the breasts, normal palpation of the axillae and no axillary lymphadenopathy Resp Effort & Inspection: normal respiratory effort Auscultation: clear to auscultation bilaterally Percussion: percussion normal Cardio Palpation: normal PMI Rate: regular rate Rhythm: regular rhythm Heart sounds: no murmurs and no rubs Peripheral pulses: Peripheral pulses 2+ throughout GI Inspection: Yes normal to inspection Palpation (GI): Soft to palpation, nontender, no guarding, not rigid and No hepatosplenomegaly present Percussion: Yes normal to percussion Auscultation: normal bowel sounds Rectal Exam - Female: deferred General: Yes bladder normal to palpation and Yes no CVA tenderness External Female Exam: No lesion Speculum Exam - Vagina: normal appearance of the vagina, normal palpation, normal vaginal discharge and not erythematous Speculum Exam - Cervix: normal appearance of the cervix and normal palpation Bimanual exam- vagina & uterus: normal bimanual exam, normal palpation, bladder normal to palpation, consistency normal, normal palpation and enlarged (Eighteen week sized uterus) Bimanual Exam- Adnexa, other: normal adnexae, no masses and no tenderness Back/Spine/Pelvis Back: no CVA tenderness Assessment & Plan Assessment & Plan (1) Well woman exam: Code(s): Z01.419 - Encounter for gynecological examination (general) (routine) without abnormal findings Category: Medical Plan: Cotesting not indicated this year. Mammogram ordered. Counseled the patient about the recommended dietary allowance of 1000 mg of Calcium & 600 IU of vitamin D. The patient was instructed to perform monthly self-breast exams and to schedule an annual exam in a year; All questions answered and the patient verbalized understanding. Instructed the patient to schedule annual exam in a year (2) Abnormal uterine bleeding: Comment: Uterine myoma Code(s): N93.9 - Abnormal uterine and vaginal bleeding, unspecified Category: Medical Plan: CBC, TSH, prolactin, HCG, and pelvic ultrasound ordered. Discussed with the patient the different causes of abnormal bleeding including thyroid disorders, uterine and ovarian pathology, endometrial hyperplasia, carcinoma and other potential causes. Discussed with the patient the work up including CBC (to r/o anemia), TSH, FSH/LH, prolactin, pelvic Ultrasound, endometrial biopsy to r/o endometrial pathology. All questions answered and the patient verbalized understanding. Instructed the patient to schedule an appointment for an endometrial biopsy in 2 weeks. Orders: Orders Prolactin Today N93.9 - Abnormal uterine and vaginal bleeding, unspecified Follicle Stimulating Hormone Today N93.9 - Abnormal uterine and vaginal bleeding, unspecified Lutenizing Hormone Today N93.9 - Abnormal uterine and vaginal bleeding, unspecified Complete Blood Count no Diff Today N93.9 - Abnormal uterine and vaginal bleeding, unspecified MM screening mammo BI Today Z12.31 - Encounter for screening mammogram for malignant neoplasm of breast TSH reflex Free T4 Today N93.9 - Abnormal uterine and vaginal bleeding, unspecified HCG Quantitative Today N93.9 - Abnormal uterine and vaginal bleeding, unspecified US pelvic and transvaginal Today N93.9 - Abnormal uterine and vaginal bleeding, unspecified Coding Level of Care Code Est Pt Prev Care 40-64y(08196) Diagnoses Well woman exam Z01.419 Abnormal uterine bleeding N93.9
[2024-08-03 12:26] VITALS: BP 118/70; BMI 26.7
== END 2024-08-03 13:05 | disposition home or self-care (01) ==
LOC: HO.HWS 12:21
PROVIDERS: PCP Internal Medicine; Visit Provider Obstetrics & Gynecology
DX: Z01.419 Encounter for gynecological examination (general) (routine) without abnormal findings (principal); N93.9 Abnormal uterine and vaginal bleeding, unspecified
CPT/HCPCS: 99396

== ENCOUNTER 2024-08-03 12:21 | Outpatient (REF) | payer OTHER, SELFPAY ==
[2024-08-03 14:41] LABS: Hematocrit 37.7 % (37.0-47.0); Hemoglobin 12.5 g/dl (12.0-16.0); Mean Corpuscular HGB Conc 33.2 g/dl (31.0-35.0); Mean Corpuscular Hemoglobin 28.3 pg (27.0-33.0); Mean Corpuscular Volume 85.5 fL (80.0-98.0); Mean Platelet Volume 11.6 fL (9.4-12.3); Platelet Count 301 X10*3/uL (160-400); Red Blood Count 4.41 X10*6/uL (4.20-5.50); Red Cell Distribution Width 15.1 % (11.0-16.0); White Blood Count 9.4 X10*3/uL (4.8-10.8)
[2024-08-03 15:30] LABS: HCG Quantitative < 2 mIU/mL; TSH reflex Free T4 1.52 uIU/mL (0.32-4.0)
[2024-08-05 00:39] LABS: Follicle Stimulating Hormone 4.8 mIU/mL; Lutenizing Hormone 3.9 mIU/mL; Prolactin 9.3 ng/mL
== END 2024-08-03 12:22 | disposition home or self-care (01) ==
LOC: HO.LAB 12:21
PROVIDERS: PCP Internal Medicine; Visit Provider Obstetrics & Gynecology
DX: Z01.419 Encounter for gynecological examination (general) (routine) without abnormal findings (principal); N93.9 Abnormal uterine and vaginal bleeding, unspecified
CPT/HCPCS: 36415; 83001; 83002; 84146; 84443; 84702; 85027

== ENCOUNTER 2024-08-12 10:54 | Outpatient (REF) | payer OTHER, SELFPAY | END 2024-08-12 10:55 | disposition home or self-care (01) | LOC: HO.US 10:54 | PROVIDERS: PCP Internal Medicine; Visit Provider Obstetrics & Gynecology | DX: N93.9 Abnormal uterine and vaginal bleeding, unspecified (principal) | CPT/HCPCS: 76830; 76856 ==

== ENCOUNTER → 2024-08-12 10:55 | Outpatient (BNV) | payer OTHER, SELFPAY | PROVIDERS: PCP Internal Medicine; Visit Provider Radiology Diagnostic Radiology | DX: D25.9 Leiomyoma of uterus, unspecified (principal) | CPT/HCPCS: 76830; 76856 ==

== ENCOUNTER 2024-09-27 09:09 | Outpatient (REF) | payer OTHER, SELFPAY ==
--- NOTE | ~2024-09-27 | MM_ITS ---
EXAMINATION: MM SCREENING DIGITAL BREAST TOMOSYNTHESIS, BILATERAL CLINICAL INFORMATION: Screening. Asymptomatic. COMPARISON: Mammography: Comparison is made with available priors TECHNIQUE: Digital breast mammography with tomosynthesis is performed in both the craniocaudal and mediolateral oblique views along with computer-aided detection (CAD). FINDINGS: The breasts are heterogeneously dense, which may obscure small masses (ACR BI-RADS breast composition Category c). There are no significant masses, abnormal calcifications, or other abnormalities. MM/MM tomosynthesis screening BI IMPRESSION: No mammographic evidence of malignancy. ASSESSMENT: BI-RADS BI-RADS 1 - Negative RECOMMENDATION: Routine annual mammography screening. 1 year F/U This examination should not preclude the clinical evaluation of a suspicious palpable abnormality. This patient's information was entered into a reminder system with a target due date for their next mammogram. Electronically signed by: Senia Bradshaw DO 10/03/2024 03:38 PM ELDA
--- OUTSIDE RECORDS SUMMARY | 2024-09-27 09:28 | XMS_ITS | Data Portability ---
Author Organization [facility] Address [address] [place] [address] Care Team Providers Care Reserves Clerk Name Role Phone TE RYAN Primary Care Provider [phone] Assessment No assessment recorded. Plan of Treatment Reminders Order Date Submit Date Provider Last Modified By Organization Details Last Modified Time Details Appointments None recorded. Lab SARS CoV 2 (COVID-19) Ag, QL, IA, upper respiratory specimen 2022 023 [place] [id number] 5 _[facility], [address] [place] [address], [phone], 3 10:11:29 rapid strep group A, throat [facility] 023 [facility], [address] [place] [address], [phone], 3 10:11:30 Referral None recorded. Procedures None recorded. Surgeries None recorded. Imaging None recorded. Medication Orders amoxicillin 875 mg-potassiu m clavulanate 125 mg tablet 2022 023 [id number], [address] [place], [place], [phone], 3 10:11:33 Patient TargetsNo targets recorded. Patient Instructions Encounter Date Encounter Id Patient Instructions Last Modified By Organization Details Last Modified Time 03/31/2023 [id number] Acute Sinusitis: Care Instructions [email or web address] Not available 03/31/2023 10:11:27 controlling your asthma: care instructions [email or web address] Not available 03/31/2023 10:12:05 Rest. Drink plenty of fluids. Take the antibiotic as prescribed. Take an over the counter probiotic daily while taking the antibiotic. Over the counter mucinex may be taken per package instructions for congestion. Use your albuterol inhaler as prescribed by your doctor for cough, wheezing and shortness of breath. See printed instructions. Follow-up in one week with your doctor. Seek Emergency Medical evaluation for any worsening symptoms. [email or web address] Not available 03/31/2023 10:13:57 Reason for Referral None Reported. Results Created Date Observation Date Name Description Value Unit Range Abnormal Flag Note LastModifiedBy Organization Detail LastModifiedTime 03/31/20 23 03/31/2023 SARS CoV 2 (COVI D-19) Ag, QL, IA, upper respi rator y speci men Unknown Analyte Normal = Negati ve Not Available [address] [place] [address], [phone], 03/31/2023 08:42:10 03/31/20 23 03/31/2023 SARS CoV 2 (COVI D-19) Ag, QL, IA, upper respi rator y speci men Unknown Analyte negati ve Not Available [address] [place] [address], [phone], 03/31/2023 08:42:10 03/31/20 23 03/31/2023 rapid strep group A, throa t Unknown Analyte Normal = Negati ve Not Available [address] [place] [address], [phone], 03/31/2023 08:42:14 03/31/20 23 03/31/2023 rapid strep group A, throa t Unknown Analyte negati ve Not Available [address] [place] [address], [phone], 03/31/2023 08:42:14 Result Notes None recorded. Problems Name Problem SNOMED Code Status Onset Date Resolution Date Notes Provider Name and Address Organization Details Recorded Time Asthma [id number] Active 023 [facility] 03/31/2023 08:43:27 Problem Notes None recorded. Medical Equipment None Reported. Allergies No known drug allergies Medications Name Sig Start Date Stop Date Status Note LastModified by Organization Details LastModified Time amoxicillin 500 mg capsule TAKE 1 CAPSULE BY MOUTH TWICE DAILY 03/31 completed Not Available Not Available Not Available prednisone 10 mg tablet 03/31 completed Not Available Not Available Not Available azithromyci n 250 mg tablet TAKE 1 TABLET BY MOUTH EVERY DAY 03/31 completed Not Available Not Available Not Available valacyclovi r 1 gram tablet TAKE 1 TABLET BY MOUTH EVERY DAY 03/31 completed Not Available Not Available Not Available prednisone 20 mg tablet TAKE 1 TABLET BY MOUTH EVERY DAY active Not Available Not Available No t Available albuterol sulfate HFA 90 mcg/actuati on aerosol inhaler INHALE 2 PUFFS BY MOUTH EVERY 4 HOURS NEEDED DIRECTED active Not Available Not Available No t Available fluticasone propionate 50 mcg/actuati on nasal spray,suspe nsion SHAKE LIQUID AND USE 1 SPRAY IN EACH NOSTRIL TWICE DAILY NEEDED active Not Available Not Available No t Available amoxicillin 875 mg-potassiu m clavulanate 125 mg tablet TAKE 1 TABLET BY MOUTH EVERY 12 HOURS FOR 10 DAYS active Not Available Not Available No t Available Flovent HFA 110 mcg/actuati on aerosol inhaler INHALE 1 PUFF BY MOUTH TWICE DAILY active Not Available Not Available No t Available Vitals Date Recorded Body height Body mass index (BMI) Body weight Oxygen saturation Oxygen saturation in Arterial blood by Pulse oximetry Heart rate Body temperature Respiratory rate Systolic blood pressure Diastolic blood pressure Provider Name and Address Organization Details Last Updated DateTime 3 157.48 cm 26.5 kg/m2 95454.8 9 g 97 % 97 % 65 /min 97.8 [degF] 20 /min 98 mm[Hg] 64 mm[Hg] Lisa Barboza [facility] 3 08:44:54 Social History Question Answer Notes LastModified by Organizat ion Details LastModified Time Tobacco Smoking Status Never Smoker [facility] 03/31/2023 08:43:37 What Is Your Level Of Alcohol Consumption? None Information not available 03/31/2023 Have You Had Direct Contact, Or Contact During Intimacy, With Monkeypox Rash, Scabs, Or Body Fluids From A Person With Monkeypox? No Information not available 03/31/2023 Do You Use Any Illicit Or Recreational Drugs? No Information not available 03/31/2023 Have You Recently Traveled Abroad? No Information not available 03/31/2023 Do You Or Have You Ever Used Any Other Forms Of Tobacco Or Nicotine? No Information not available 03/31/2023 Sex: Unknown Functional Status None recorded. Mental Status None recorded. Family History Relationship Description Onset Age of this Age Resolved Age Notes LastModified by Organization Details LastModified Time Father No current problems or disability Not available 03/31 08:43:29 Mother No current problems or disability Not available 03/31 08:43:29 Medical History No medical history recorded. Gynecological History Statement/Question Response Date of LMP 03/16/2023 Is there any chance of ? No LMP Approximate Obstetrics History GPAL:G 0 P 0 0 0 0 Immunizations Vaccine Type Date Status Note Provider Nam e and Address Organization Details Recorded Time COVID-19, mRNA, LNP-S, PF, 100 mcg/0.5mL dose or 50 mcg/0.25mL dose 12/18/2020 completed Lisa Suma null, [place] - [facility] 03/31/2023 08:42:59 COVID-19, mRNA, LNP-S, PF, 100 mcg/0.5mL dose or 50 mcg/0.25mL dose 01/15/2021 completed Lisa Mason null, PA - [facility] 03/31/2023 08:42:59 COVID-19, mRNA, LNP-S, PF, 100 mcg/0.5mL dose or 50 mcg/0.25mL dose 09/09/2021 completed Ilsa Mason null, PA - [facility] 03/31/2023 08:42:59 Past Encounters Encounter ID Performer Location Encounter Start Date Encounter Closed Date Diagnosis/Indication Diagnosis SNOMED-CT Code Diagnosis ICD10 Code Diagnosis Note [id number] [address] [facility] [place] [address] 07/04/2021 14:23:20 07/04/2021 17:53:08 [id number] [address] [facility] [place] [address] 10/25/2020 12:10:45 10/25/2020 12:55:43 [id number] [address] [facility] [place] [address] 01/08/2021 14:11:52 01/08/2021 14:55:39 [id number] [address] [facility] [place] [address] 10/08/2020 12:35:27 10/08/2020 14:07:[id number] [place] [address] [facility] [place] [address] 03/31/2023 08:17:08 03/31/2023 10:16:09 Acute sinusitis 61828665 J01.90 Health Concerns Section Related Observation LastModified by Organization Detai ls LastModified Time None Recorded Concern Status LastModified by Organization Details LastModified Time None Recorded Advance Directives Directive None Recorded Payers Encounter Date Sequence Insurance Name Policy Number Policy Brand Covered Member ID Brand Member ID Guarantor Name 10/08/2020 1 [facility] [id number] 1 Sherri Robert [id number] Suly Robert 10/25/[address] [place] [address] [id number] 1 Sherri Robert [id number] Suly Robert 01/08/[address] [place] [address] [id number] 1 Sherri Robert [id number] Suly Robert 07/04/[address] [place] [address] [id number] 1 Sherri Robert [id number] Suly Robert 03/31/[address] [place] [address] [id number] 1 Sherri Robert [id number] Suly Robert Notes Date Note Type Note Provider Name and Address Organization Details Recorded Time 03/31/2023 text/html Sinus Complaints UCReported bypatient.Location:sin us pain;facial pain;sinus pressure; left side; right side Associated Symptoms:no fever; no nausea or vomiting;nasal discharge from both nostrils;sore throat;Post nasal drip;nasal passage blockage bilaterally;ear fullness;cough; Trouble breathing through nose due to congestion. Onset/Timing:initially started 2months ago Quality:worsening;puru lent Duration:constant Severity:moderate Context:no recent sick contacts;worse with seasonal allergen exposure Risk Factors:no current smoking or tobacco use Alleviating factors:nothing gives relief Aggravating factors:nothing makes it worse Prior Treatmenttopical decongestant; oral decongestant; oral steroids:prednisoneNot es:47 year old female with hx of asthma, chronic allergies presenting for evaluation of worsening sinus pain and pressure, nasal congestion, post nasal drip, runny nose for one week. She has been bothered by her allergies and sinus issues for more than 2 months and has been treated with oral steroids with temporary improvement by her PCP. She has chronic intermittent wheezing which improves with use of her inhaler. She currently denies fever. Has a sore throat and some ear pressure. No chest pain or shortness of breath. No GI symptoms, rash or stiff neck. She has occasional occipital headaches. The patient reports that on 03/28/23 she blew her nose so hard she passed out for a few seconds. She contacted her doctor who then prescribed flonase nasal spray for her which she has been using. Evy Lane [facility] [address] [facility] [place] [place], [address], [place] - [facility] 03/31/2023 10:24:09 OBGyn Episode No OBEpisode recorded.
== END 2024-09-27 09:10 | disposition home or self-care (01) ==
LOC: HO.MAMMO 09:09
PROVIDERS: PCP Internal Medicine; Visit Provider Obstetrics & Gynecology
DX: Z12.31 Encounter for screening mammogram for malignant neoplasm of breast (principal)
CPT/HCPCS: 77063; 77067

== ENCOUNTER → 2024-09-27 09:15 | Outpatient (BNV) | payer OTHER, SELFPAY | PROVIDERS: PCP Internal Medicine; Visit Provider Internal Medicine | DX: Z12.31 Encounter for screening mammogram for malignant neoplasm of breast (principal) | CPT/HCPCS: 77063; 77067 ==

== ENCOUNTER 2024-10-18 13:50 | Outpatient (REF) | payer OTHER, SELFPAY ==
--- OUTSIDE RECORDS SUMMARY | 2024-10-18 15:27 | XMS_ITS | Clinical Summary ---
Author Organization [facility] Address [address] [place] [address] Care Team Providers Care Head Rigger Name Role Phone Unavailable Primary Care Provider Unavailabl e Source Comments PLEASE NOTE, if this patient is a minor, it may be UNLAWFUL to discuss sensitive information that is contained in these records (such as FAMILY PLANNING, MENTAL HEALTH or SUBSTANCE ABUSE) with the minor patient's parent or other person without the patient's specific authorization.[facility] Immunizations Name Administration Dates Next Due Moderna COVID-19 Vaccine, re d cap blue label, 12+ Primary Series 01/15/2021,12/18/2020 Social History Tobacco Use Types Packs/Day Years Used Date Smoking Tobacco: Never Assessed Social Connections Answer Date Recorded Social Connections and Isolation 0 12/18/2020 Financial Resource Strain Answer Date R ecorded Financial Resource Strain 0 2020 Stress Answer Date Recorded Stress 0 12/18/2020 Physical Activity Answer Date Recorded Physical Activity 0 12/18/2020 Food Insecurity Answer Date Recorded Food 0 12/18/2020 Transportation Needs Answer Date Record ed Transportation 0 12/18/2020 Housing Stability Answer Date Recorded Housing 0 12/18/2020 Safety and Environment Answer Date Bryan rded Safety 0 12/18/2020 Utilities Answer Date Recorded Utilities 0 12/18/2020 Employment Answer Date Recorded Employment 0 12/18/2020 Comments Unknown Sex and Gender Information Value Date Recorded Sex Assigned at Not on file Legal Sex Female 6:02 AM PDT Gender Identity Not on file Sexual Orientation Not on file Plan of Treatment Health Maintenance Due Date Last Done Comments Diabetes Screening 1976 HPV Screening 1976 Hepatitis C Screening 1976 Lipid Screening 1976 Pap + HPV 1976 Tobacco Screening 1976 HIV Screening 1991 Relationship Safety Screening/Counseling 1991 Hypertension Screening (#1) 1994 Imm-DTaP/Tdap/Td (1 - Tdap) 1995 Imm-Hepatitis B (1 of 3 - 19 + 3-dose series) 1995 Cervical Cancer Screening 1997 Pap Smear 1997 Breast Cancer Screening (Mammogram) 2016 CT Colonography 2021 Colonoscopy 2021 Colorectal Cancer Screening 2021 FIT/gFOBT 2021 Fecal DNA 2021 Flexible Sigmoidoscopy 2021 [id number] ( season) 05/22/202401/15/ 021, 12/18/2020 Imm-Influenza (#1) 2024 Alcohol and Drug Screen 09/21/2024 Depression Annual Screen 09/21/2024 Cervical Ablation/Cold-Knife Conization Discontinued Cervical Cryotherapy Discontinued Colposcopy Discontinued Endometrial Biopsy Discontinued Excision/Leep Discontinued HPV Genotyping Discontinued Vaginal Pap Discontinued Vulvoscopy Discontinued Insurance HNE ([facility]) Member Subscriber Plan / Payer (Ef fective 2018-Present) Name:Suly Jones Relation to Subscriber:Self Name:Suly Jones Payer ID:[id number] Group ID:Not on file Type:Indemnity Address: [address] [place] [address]
== END 2024-10-18 13:51 | disposition home or self-care (01) ==
LOC: HO.LNP 13:50
PROVIDERS: PCP Internal Medicine; Visit Provider Obstetrics & Gynecology
DX: N93.9 Abnormal uterine and vaginal bleeding, unspecified (principal)
CPT/HCPCS: 58100; 88305

== ENCOUNTER 2024-11-15 13:27 | Outpatient (AMB) | payer OTHER, SELFPAY ==
--- NOTE | 2024-11-15 13:28 | A.OFFVIS_ITS ---
Intake Visit Reasons: EMB results Allergies No Known Allergies Allergy (Unknown, Verified 10/18/24 14:03) UNKNOWN HPI Comments Details: The the patient is scheduled tele health visit for follow-up to discuss the results of her abnormal uterine bleeding workup and options of treatment. The following workup was done.: H&H= 12.5/37.7 TSH, prolactin, hCG, GC and chlamydia were negative. FSH/LH= 4.8/3.9 Endometrial biopsy pathology showed the following: Early secretory endometrium; no atypia or hyperplasia identified Co testing was done was negative. Mammogram was BI-RADS 1. Pelvic ultrasound showed the following: Uterus: The uterus is anteverted, anteflexed, and measures 13.0 x 4.1 x 8.5 cm. 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 The cervix is normal with a mildly complicated appearing nabothian cysts. The double wall endometrial thickness is 11 mm. A small amount of hypoechoic fluid in the endometrial canal is nonspecific. The uterus is smooth in contour and has heterogeneous myometrial echogenicity. There are several uterine fibroids: -Right subserosal fundal fibroid measures 5.8 x 4.6 x 6.0 cm (previously 4.7 x 4.5 x 5.5 cm). -A left cornual mid intramural fibroid measures 2.9 x 2.8 x 3.4 cm (previously 1.8 x 1.5 x 1.8 cm). -A right mid uterine segment submucosal fibroid is new, measuring 1.4 x 1.6 x 2.0 cm. Adnexa: Both ovaries are visualized. There is normal color flow to the adnexa. There is no ovarian torsion. There is no pelvic ascites or fluid collection. There is a similar left paraovarian septated cyst measuring 4.3 x 3.6 x 4.0 cm, seen on multiple prior exams (most recently measuring 5.0 x 2.7 x 4.4 cm). Right ovary measures 3.2 x 1.6 x 1.4 cm. Volume = 3.7 cm. Normal sonographic appearance. Left ovary measures 2.7 x 2.5 x 2.8 cm. Volume = 9.9 mL. Normal sonographic appearance. 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 Gender identity: Female Female Reproductive History Menstrual Age of Menarche: 11 Review of Systems Const All systems reviewed & are unremarkable except as noted in HPI and below Reports as per HPI and Reports no additional complaints GI Reports no additional complaints Reports no additional complaints Telehealth Telehealth Telehealth Platform: [email or web address] Location of patient: address on file Patient Identification confirmed using: Name, : Yes Telehealth method: video Patient verbally consented to billing insurance company: Yes Patient informed of any privacy concerns related to visit: Yes Minutes spent on Phone/Video with Pt.: 7 Assessment & Plan Assessment & Plan (1) Abnormal uterine bleeding: Comment: Septated Code(s): N93.9 - Abnormal uterine and vaginal bleeding, unspecified Category: Medical Plan: Discussed with the patient the results of the work up done and options of treatment including Lysteda, BCP's, Mirena IUD, endometrial ablation and hysterectomy. All pros, cons, risks and benefits if each option was discussed with the patient and the patient decided to proceed with hysterectomy. Disc ussed with the patient the different types of hysterectomies including, vaginal, laparoscopic assisted vaginal, robotic assisted laparoscopic,& abdominal with BSO. All pros, cons, r/b of each approach were discussed the patient including evidence that morbidity is less and recovery is shorter with minimally invasive approaches to hysterectomy. Discussed with the patient the lack of availability of the robot DaVinci robot and/or minimally invasive marketing content manager specialist at [facility]. Will refer to [facility] for minimally invasive skin care therapist surgery (2) Uterine myoma: Comment: Enlarging Code(s): D25.9 - Leiomyoma of uterus, unspecified Category: Medical Plan: Discussed with the patient the findings on pelvic ultrasound & the risk of myosarcoma; in addition reviewed with the patient that malignancy and pre malignancy cannot be ruled out without hysterectomy for pathological evaluation ; furthermore, explained to the patient the limitation of pelvic ultrasound and endometrial biopsy in the setting. Discussed with the patient the typical symptoms that are caused by myomas including but not limited to pelvic pain, pressure symptoms, abnormal uterine bleeding. In addition discussed with the patient options of treatment for myomas including: Serial ultrasounds periodically to follow-up on the size of the myoma while targeting the treatment against fibroids related symptoms ( control pills, Mirena IUD, progesterone treatment, GnRH agonist/antagonist, uterine artery embolization or endometrial ablation) versus surgical management . All pros and cons, risks and benefits of all options were discussed with the patient who decided to proceed with definitive surgical management. Will refer the patient to [facility] minimally invasive skin care therapist . Instructed the patient to call our office back in case a referral appointment is not scheduled, missed or canceled so that we will assist on rescheduling another appointment, the patient verbalized understanding agreed with the plan. (3) Para-ovarian cyst: Comment: Septated Code(s): Q50.5 - Embryonic cyst of broad ligament Category: Medical Plan: Discussed with the patient the persistent complex Paraovarian cyst sby Ultrasound. The differential diagnosis discussed with the patient includes the following but not limited to: benign and malignant gynecological and non- gynecological. Will refer to [facility] for minimally invasive surgical management. I spent a total of 20 minutes reviewing the chart, talking to the patient via video and documenting in the medical record. Coding Level of Care Code Tele Est Pt Level 3 (58599) Diagnoses Abnormal uterine bleeding N93.9 Uterine myoma D25.9 Para-ovarian cyst Q50.5
--- OUTSIDE RECORDS SUMMARY | 2024-11-15 16:32 | XMS_ITS | Clinical Summary ---
Author Organization [facility] Address [address] [place] [address] Care Team Providers Care Jewel Waxer Name Role Phone Unavailable Primary Care Provider [...] 2021 Fecal DNA 2021 Flexible Sigmoidoscopy 2021 [id number] ( season) 05/22/202401/15/ 021, 12/18/2020 Imm-Influenza (#1) 2024 Alcohol and Drug Screen 09/21/2024 Depression Annual Screen 09/21/2024 Cervical Ablation/Cold-Knife Conization Discontinued Cervical Cryotherapy Discontinued Colposcopy Discontinued Endometrial Biopsy Discontinued Excision/Leep Discontinued HPV Genotyping Discontinued Vaginal Pap Discontinued Vulvoscopy Discontinued Insurance [employer] ([facility]) Member Subscriber Plan / Payer (Ef fective 2018-Present) Name:Suly Jones Relation to Subscriber:Self Name:Suly Jones Payer ID:[id number] Group ID:Not on file Type:Indemnity Address: [address] [place] [address]
--- OUTSIDE RECORDS SUMMARY | 2024-11-15 16:33 | XMS_ITS | Data Portability ---
Author Organization [facility] [address] Address [address] [place] [address] Care Team Providers Care Trim Die Maker Name Role Phone TE RYAN Primary Care Provider Assessment No assessment recorded. Plan of Treatment Reminders Order Date Submit Date Provider Last Modified By Organization Details Last Modified Time Details Appointments None recorded. Lab SARS CoV 2 (COVID-19) Ag, QL, IA, upper respiratory specimen 2022 023 [place] [address] 5 _[facility], [address] [place] [address], [phone], 3 10:11:29 rapid strep group A, throat 2022 023 [facility], [address] [place] [address], [phone], 3 10:11:30 Referral None recorded. Procedures None recorded. Surgeries None recorded. Imaging None recorded. Medication Orders amoxicillin 875 mg-potassiu m clavulanate 125 mg tablet 2022 023 [id number], [address] [place], [place], [phone], 3 10:11:33 Patient TargetsNo targets recorded. Patient Instructions Encounter Date Encounter Id Patient Instructions Last Modified By Organization Details Last Modified Time 03/31/2023 [id number] Acute Sinusitis: Care Instructions [email or web address] Not available 03/31/2023 10:11:27 controlling your asthma: care instructions [email or web address] Not available 03/31/2023 10:12:05 Rest. Drink plenty [...] Emergency Medical evaluation for any worsening symptoms. [email or web address] Not available 03/31/2023 10:13:57 Reason for Referral None Reported. Results Created Date Observation Date Name Description Value Unit Range Abnormal Flag Note LastModifiedBy Organization Detail LastModifiedTime 03/31/20 23 03/31/2023 SARS CoV 2 (COVI D-19) Ag, QL, IA, upper respi rator y speci men Unknown Analyte Normal = Negati ve Not Available [address] [place] [address], [phone], 03/31/2023 08:42:10 03/31/20 23 03/31/2023 SARS CoV 2 (COVI D-19) Ag, QL, IA, upper respi rator y speci men Unknown Analyte negati ve Not Available [address] [place] [address], [phone], 03/31/2023 08:42:10 03/31/20 23 03/31/2023 rapid strep group A, throa t Unknown Analyte Normal = Negati ve Not Available [address] [place] [address], [phone], 03/31/2023 08:42:14 03/31/20 23 03/31/2023 rapid strep group A, throa t Unknown Analyte negati ve Not Available [address] [place] [address], [phone], 03/31/2023 08:42:14 Result Notes None recorded. Problems Name Problem SNOMED Code Status Onset Date Resolution Date Notes Provider Name and Address Organization Details Recorded Time Asthma 268499422 Active 023 Lisa valladares PA - [facility] 03/31/2023 08:43:27 Problem Notes None [...] oximetry Heart rate Body temperature Respiratory rate Pain severity - 0-10 verbal numeric rating [Score] - Reported Systolic blood pressure Diastolic blood pressure Provider Name and Address Organization Details Last Updated DateTime 3 157.48 cm 26.5 kg/m2 23289.8 9 g 97 % 97 % 65 /min 97.8 [degF] 20 /min 8 98 mm[Hg] 64 mm[Hg] Lisa Moise PA - [facility] 3 08:44:54 Social History Question Answer Notes LastModified by Organizat ion Details LastModified Time Tobacco Smoking Status Never Smoker [facility] 03/31/2023 08:43:37 What Is Your Level [...] or 50 mcg/0.25mL dose 12/18/2020 completed Lisa [place] null, PA - [facility] 03/31/2023 08:42:59 COVID-19, mRNA, LNP-S, PF, 100 mcg/0.5mL dose or 50 mcg/0.25mL dose 01/15/2021 completed Lisa Suma null, PA - [facility] 03/31/2023 08:42:59 COVID-19, mRNA, LNP-S, PF, 100 mcg/0.5mL dose or 50 mcg/0.25mL dose 09/09/2021 completed Lisa Suma null, PA - [facility] 03/31/2023 08:42:59 Past Encounters Encounter ID Performer Location Encounter Start Date Encounter Closed Date Diagnosis/Indication Diagnosis SNOMED-CT Code Diagnosis ICD10 Code Diagnosis Note [id number] [address] [facility] [place] [address] 07/04/2021 14:23:20 07/04/2021 17:53:08 [id number] [address] [facility] [place] [address] 10/25/2020 12:10:45 10/25/2020 12:55:43 [id number] [address] [place] [address] [place] [address] 01/08/2021 14:11:52 01/08/2021 14:55:39 [id number] [address] [facility] [place] [address] 10/08/2020 12:35:27 10/08/2020 14:07:[id number] [place] [address] [facility] [place] [address] 03/31/2023 08:17:08 03/31/2023 10:16:09 Acute sinusitis 68865496 J01.90 Health Concerns Section Related Observation LastModified by Organization Detai ls LastModified Time None Recorded Concern Status LastModified by Organization Details LastModified Time None Recorded Advance Directives Directive None Recorded Payers Encounter Date Sequence Insurance Name Policy Number Policy Brand Covered Member ID Brand Member ID Guarantor Name 10/08/2020 1 [facility] [id number] 1 Sherri Robert [id number] Suly Robert 10/25/2020 1 [facility] [id number] 1 Sherri Robert [id number] Suly Robert 01/08/2021 1 [facility] [id number] 1 Sherri Robert [id number] Suly Robert 07/04/2021 1 [facility] [id number] 1 Sherri Robert [id number] Suly Robert 03/31/2023 1 [facility] [id number] 1 Sherri Robert [id number] Suly Robert Notes Date Note Type Note [...] she has been using. Evy Lane MD [address] [place] [address], [phone], [place] - [facility] 03/31/2023 10:24:09 OBGyn Episode No OBEpisode recorded.
== END 2024-11-15 13:50 | disposition home or self-care (01) ==
LOC: HO.HWS 13:27
PROVIDERS: PCP Internal Medicine; Visit Provider Obstetrics & Gynecology
DX: N93.9 Abnormal uterine and vaginal bleeding, unspecified (principal); D25.9 Leiomyoma of uterus, unspecified; Q50.5 Embryonic cyst of broad ligament
CPT/HCPCS: 99213

== ENCOUNTER → 2024-11-15 13:27 | Outpatient (BNVA) | payer OTHER, SELFPAY | PROVIDERS: PCP Internal Medicine; Visit Provider Obstetrics & Gynecology ==

== ENCOUNTER 2025-03-03 14:51 | Outpatient (AMB) | payer OTHER, SELFPAY ==
--- OUTSIDE RECORDS SUMMARY | 2025-03-03 14:53 | XMS_ITS | Clinical Summary ---
Author Organization [facility] Address [address] [place] [address] Care Team Providers Care Incoming Inspector Name Role Phone Unavailable Primary Care Provider Unavailabl e Source Comments PLEASE NOTE, if this patient is a minor, it may be UNLAWFUL to discuss sensitive information that is contained in these records (such as FAMILY PLANNING, MENTAL HEALTH or SUBSTANCE ABUSE) with the minor patient's parent or other person without the patient's specific authorization.[facility] Immunizations Immunization Administration Dates Next Due Moderna COVID-19 Vaccine, [...] Health Maintenance Due Date Last Done Comments Anxiety Screening 1975 Diabetes Screening 1975 HPV Screening 1975 Hepatitis [...] 2021 Fecal DNA 2021 Flexible Sigmoidoscopy 2021 [id number] ( season) 05/22/202401/15/ 021, 12/18/2020 Imm-Influenza (#1) 2024 Alcohol and Drug Screen 09/21/2024 Depression Annual Screen 09/21/2024 Cervical Ablation/Cold-Knife Conization Discontinued Cervical Cryotherapy Discontinued Colposcopy Discontinued Endometrial Biopsy Discontinued Excision/Leep Discontinued HPV Genotyping Discontinued Vaginal Pap Discontinued Vulvoscopy Discontinued Insurance HNE ([facility]) Member Subscriber Plan / Payer (Ef fective 2018-Present) Name:Suly Jones Relation to Subscriber:Self Name:Suly Jones Payer ID:[id number] Group ID:Not on file Type:Indemnity Address: [address] [place] [address]
[2025-03-03 15:06] VITALS: BP 114/70; PULSE 80; TEMP 36.3; O2SAT 99; BMI 26.0
--- NOTE | 2025-03-03 15:06 | MHC.PC.OV ---
Vital Signs 03/03/25 15:06 Height 5 ft 2 in Weight 142 lb BMI 26.0 BP 114/70 Blood Pressure Location Lt brachial Position Sitting Pulse 80 Pulse Source Pulse Oximeter Temp 97.3 F Temp Source Axillary Pulse Oximetry (%) 99 Oxygen Delivery Method Room Air Intake Visit Reasons: Routine Art Instructor Required: No Accompanied by: Self / Same As Patient Allergies No Known Allergies Allergy (Unknown, Verified 03/03/25 15:06) UNKNOWN Tobacco use date assessed: 03/03/25 Dental Screening Dental Screen Date: 03/03/25 Did you have a dental visit in the last 12 months?: Yes Did you have a dental problem in the last 6 months where you did not have access to dental care?: No HPI HPI Comments History of Present Illness Details The patient is a 49 year old female with a past medical history of asthma, nasal polyps, allergies, AUB presenting for follow up Asthma: She is on flonase, albuterol claritin. currently with increased wheezing, sinus congestion. 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 NAD EYES: EOMI. Anicteric. HENT: Moist mucous membranes. No scleral icterus. No cervical lymphadenopathy. LUNGS: scattered wheeze CARDIOVASCULAR: Regular rate and rhythm. No murmur. No JVD. ABDOMEN: Soft, non-tender +bs EXTREMITIES: No edema. Non-tender. SKIN: No rashes or lesions. Warm. NEUROLOGIC: No focal neurological deficits. CN II-XII grossly intact PSYCHIATRIC: Cooperative. Appropriate mood and affect [facility] Medical History (Updated 03/03/25 @ 15:31 by Radha Lam MD) Herpes Seasonal allergies Asthma Surgical History Hx of colonoscopy (~11/27/23) History of sinus surgery History of cholecystectomy History of hernia repair History of appendectomy Family History Mother No problems noted. Father No problems noted. 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 1. Little interest or pleasure in doing things: not at all 2. Feeling down, depressed, or hopeless: not at all 3. Trouble falling or staying asleep, or sleeping too much: not at all 4. Feeling tired or having little energy: not at all 5. Poor appetite or overeating: not at all 6. Feeling bad about yourself - or that you are a failure or have let yourself or your family down: not at all 7. Trouble concentrating on things, such as reading the newspaper or watching television: not at all 8. Moving or speaking so slowly that other people could have noticed. Or the opposite - being so fidgety or restless that you have been moving around a lot more than usual: not at all 9. Thoughts that you would be better off or of hurting yourself in some way: not at all Total score: 0 Depression Screening Interpretation: Negative Depression Screening Done: Yes 25171 - PHQ-9 Billing: Yes Source: Developed by Drs. Slim Beach, Trudy Doyle, Noé Gamboa and colleagues, with an educational joyce from [employer]. Thrive Questionnaire Date Thrive assessed: 03/03/25 I am a: Patient Within the past 12 months, did the food you bought not last and you didn't have the money to get more?: Never true Within the past 12 months, did you worry whether your food would run out before you got money to buy more?: Never true Do you have trouble paying for medicines?: No Do you have trouble getting transportation to medical appointments?: No Do you have trouble paying your heating and electricity bill?: No Do you have trouble taking care of your child, family member or friend?: No Do you have trouble with day-to-day activities such as bathing, preparing meals, shopping, managing finances, etc.?: No Are you currently unemployed and looking for a job?: No Are you interested in more education?: No THRIVE Score: 0 AUDIT C Alcohol Use Questionnaire (AUDIT-C) 1. How often do you have a drink containing alcohol?: Monthly or less 2. How many drinks containing alcohol do you have on a typical day when you are drinking?: 1 or 2 3. How often do you have six or more drinks on one occasion?: Less than monthly Total Score: 2 RAO-7 AMB Questionnaire RAO-7 Date RAO - 7 assessed: 03/03/25 Feeling nervous, anxious, or on edge: 0 = Not at all Not being able to stop or control worryin = Not at all Worrying too much about different things: 0 = Not at all Trouble relaxin = Not at all Being so restless that it is hard to sit still: 0 = Not at all Becoming easily annoyed or irritable: 0 = Not at all Feeling afraid as if something awful might happen: 0 = Not at all Total RAO-7 score (0-4 normal; 5-9 mild; 10-14 moderate; 15-21 severe): 0 Source: Developed by Drs. Slim Beach, Trudy Doyle, Noé Gamboa and colleagues, with an educational joyce from [employer]. Physical exam (Primary Care) Vital Signs: Last Vital Signs Temp 97.3 F 03/03/25 15:06 Pulse 80 03/03/25 15:06 BP 114/70 03/03/25 15:06 Pulse Ox 99 03/03/25 15:06 Oxygen Delivery Method Room Air 03/03/25 15:06 BMI result Body Mass Index 26.0 Tobacco/Smoking Status: Tobacco use Status Tobacco use date assessed 03/03/25 03/03/25 15:12 Patient Tobacco Use Status Former Tobacco user 03/03/25 15:12 Tobacco use type Cigarette 03/03/25 15:12 e-Cigarette/Vaping Use Former Use 03/03/25 15:12 PHQ-9: PHQ-9 Score PHQ-9: Total score 0 03/03/25 15:12 Depression Screening Interpretation: Negative Thrive Assessment: Date of Thrive Assessment Date Thrive assessed 03/03/25 03/03/25 15:12 Coding Level of Care Code New Pt Level 4 (59183) Complex EM visit Add On G2211 Diagnoses Moderate persistent asthma with acute exacerbation J45.41 Asthma severity: moderate Asthma persistence: persistent Asthma complication type: with acute exacerbation Herpes B00.9 Additional Codes PHQ-9 - 03461 - PHQ-9 Billing: Yes ([id number]) Assessment & Plan Assessment & Plan (1) Asthma: Code(s): J45.909 - Unspecified asthma, uncomplicated Category: Medical Qualifiers: Asthma severity: moderate Asthma persistence: persistent Asthma complication type: with acute exacerbation Qualified Code(s): J45.41 - Moderate persistent asthma with (acute) exacerbation (2) Herpes: Code(s): B00.9 - Herpesviral infection, unspecified Category: Medical Plan 49 to establish Past medical surgical social reviewed Asthma exacerbation-zpak, prednisone. After completed started asmanex. continue prn albuterol Medications: New prednisone 40 mg (2 x 20 mg) PO DAILY 6 tabs 0RF Asmanex HFA 200 mcg/actuation (mometasone) 2 puffs inhalation BID 13 grams 3RF NS azithromycin For 250 mg dose pack: take 500 mg today (day 1), then 250 mg for 4 days (days 2-5) PO 6 tabs 0RF Refilled valacyclovir 1,000 mg PO DAILY 90 tabs 3RF
== END 2025-03-03 15:32 | disposition home or self-care (01) ==
LOC: HO.HMCHD 14:51
PROVIDERS: PCP Internal Medicine; Visit Provider Internal Medicine
DX: J45.41 Moderate persistent asthma with (acute) exacerbation (principal); B00.9 Herpesviral infection, unspecified

== ENCOUNTER → 2025-03-03 14:51 | Outpatient (BNVA) | payer OTHER, SELFPAY | PROVIDERS: PCP Internal Medicine; Visit Provider Internal Medicine | DX: J45.41 Moderate persistent asthma with (acute) exacerbation (principal); B00.9 Herpesviral infection, unspecified; Z13.31 Encounter for screening for depression; Z13.30 Encounter for screening examination for mental health and behavioral disorders, unspecified | CPT/HCPCS: 96127 ==

== ENCOUNTER 2025-04-07 08:32 | Outpatient (AMB) | payer OTHER, SELFPAY ==
--- OUTSIDE RECORDS SUMMARY | 2025-04-07 08:34 | XMS_ITS | Clinical Summary ---
Author Organization [facility] Address [address] [place] [address] Care Team Providers Care Support Assistant Name Role Phone Unavailable Primary Care Provider [...] 2021 Fecal DNA 2021 Flexible Sigmoidoscopy 2021 [id number] ( season) 05/22/202401/15/ 021, 12/18/2020 Imm-Influenza (#1) 2024 Alcohol and Drug Screen 09/21/2024 Depression Annual Screen 09/21/2024 Cervical Ablation/Cold-Knife Conization Discontinued Cervical Cryotherapy Discontinued Colposcopy Discontinued Endometrial Biopsy Discontinued Excision/Leep Discontinued HPV Genotyping Discontinued Vaginal Pap Discontinued Vulvoscopy Discontinued Insurance HNE ([facility]) Member Subscriber Plan / Payer (Ef fective 2018-Present) Name:Suly Jones Relation to Subscriber:Self Name:Suly Jones Payer ID:[id number] Group ID:Not on file Type:Indemnity Address: [address] [place] [address]
--- OUTSIDE RECORDS SUMMARY | 2025-04-07 08:35 | XMS_ITS | Data Portability ---
Author Organization [facility], [address] Address [address] [place] [address] Care Team Providers Care Floor Nurse Name Role Phone TE RYAN Primary Care Provider Assessment No assessment recorded. Plan of Treatment Reminders Order Date Submit Date Provider Last Modified By Organization Details Last Modified Time Details Appointments None recorded. Lab SARS CoV 2 (COVID-19) Ag, QL, IA, upper respiratory specimen 2022 [facility], [address] [place] [address], [phone], 3 10:11:29 rapid strep group A, throat 2022 023 [email or web address] 5 _[facility], [address] [place] [address], [phone], 3 10:11:30 Referral None recorded. Procedures None recorded. Surgeries None recorded. Imaging None recorded. Medication Orders amoxicillin 875 mg-potassiu m clavulanate 125 mg tablet 2022 023 [id number], [address] [place], [place], [phone], 3 10:11:33 Patient TargetsNo targets recorded. Patient Instructions Encounter Date Encounter Id Patient Instructions Last Modified By Organization Details Last Modified Time 03/31/2023 [id number] Acute Sinusitis: Care Instructions [email or web address] Not available 03/31/2023 10:11:27 controlling your asthma: care instructions [email or web address] Not available 03/31/2023 10:12:05 Rest. Drink plenty [...] Emergency Medical evaluation for any worsening symptoms. [email or web address] Not available 03/31/2023 10:13:57 Reason for Referral None Reported. Results Created Date Observation Date Name Description Value Unit Range Abnormal Flag Note LastModifiedBy Organization Detail LastModifiedTime 03/31/2003/31/2023 SARS CoV 2 (COVI D-19) Ag, QL, IA, upper respi rator y speci men Unknown Analyte Normal = Negati ve Not Available [address], [address], 03/31/2023 08:42:10 03/31/20 23 03/31/2023 SARS CoV 2 (COVI D-19) Ag, QL, IA, upper respi rator y speci men Unknown Analyte negati ve Not Available [address] [place] [address], [phone], 03/31/2023 08:42:10 03/31/20 23 03/31/2023 rapid strep group A, throa t Unknown Analyte Normal = Negati ve Not Available [address] [place] [address], [phone], 03/31/2023 08:42:14 03/31/20 23 03/31/2023 rapid strep group A, throa t Unknown Analyte negati ve Not Available [address] [place] [address], [phone], 03/31/2023 08:42:14 Result Notes None recorded. Problems Name Problem SNOMED Code Status Onset Date Resolution Date Notes Provider Name and Address Organization Details Recorded Time Asthma 542956697 Active 023 [facility] 03/31/2023 [...] Heart rate Body temperature Respiratory rate Systolic And Diastolic Provider Name and Address Organization Details Last Updated DateTime 3 157.48 cm 26.5 kg/m2 90224.8 9 g 97 % 97 % 65 /min 97.8 [degF] 20 /min 98/64 mm[Hg] Lisa Barboza [facility] 3 08:44:54 Social History Question Answer Notes LastModified by Organizat ion Details LastModified Time Tobacco Smoking Status Never Smoker [facility] 03/31/2023 08:43:37 Have You Had Direct Contact, Or Contact During Intimacy, With Monkeypox Rash, Scabs, Or Body Fluids From A Person With Monkeypox? No Information not available 03/31/2023 Have You Recently Traveled Abroad? No Information not available 03/31/2023 Sex: Unknown Functional Status Question Answer Note LastModified by Organizat ion Details LastModified Time Do you use any illicit or recreational drugs? No Information not available 03/31/2023 Do you or have you ever used any other forms of tobacco or nicotine? No Information not available 03/31/2023 What is your level of alcohol consumption? None Information not available 03/31/2023 Mental Status None recorded. Family History Relationship [...] or 50 mcg/0.25mL dose 12/18/2020 completed Lisa [place] null, PA - [facility] 03/31/2023 08:42:59 COVID-19, mRNA, LNP-S, PF, 100 mcg/0.5mL dose or 50 mcg/0.25mL dose 01/15/2021 completed Lisa [place] null, PA - [facility] 03/31/2023 08:42:59 COVID-19, mRNA, LNP-S, PF, 100 mcg/0.5mL dose or 50 mcg/0.25mL dose 09/09/2021 completed Lisa Suma null, PA - [facility] 03/31/2023 08:42:59 Past Encounters Encounter ID Performer Location Encounter Start Date Encounter Closed Date Diagnosis/Indication Diagnosis SNOMED-CT Code Diagnosis ICD10 Code Diagnosis Note [id number] [address] [address] [place] [address] 07/04/2021 14:23:20 07/04/2021 17:53:08 [id number] [address] [address] [place] [address] 10/25/2020 12:10:45 10/25/2020 12:55:43 [id number] [address] [address] [place] [address] 01/08/2021 14:11:52 01/08/2021 14:55:39 [id number] [address] [place] [address] 10/08/2020 12:35:27 10/08/2020 14:07:[id number] MD [facility] [address] [place] [address] 03/31/2023 08:17:08 03/31/2023 10:16:09 Acute sinusitis 52218098 J01.90 Health Concerns Section Related Observation LastModified by Organization Detai ls LastModified Time None Recorded Concern Status LastModified by Organization Details LastModified Time None Recorded Advance Directives Directive None Recorded Payers Insurance Date Sequence Insurance Name Policy Number Policy Brand Covered Member ID Brand Member ID Guarantor Name 03/31/[address] [place] [address] [id number] Suly Jones [id number] Suly Jones Notes Date Note Type Note Provider Name [...] has been using. Evy Lane MD [address] [facility] [place], [address], [place] - [facility] 03/31/2023 10:24:09 OBGyn Episode No OBEpisode recorded.
[2025-04-07 08:41] VITALS: BP 98/70; PULSE 77; TEMP 36.9; O2SAT 97; BMI 26.3
--- NOTE | 2025-04-07 08:41 | AM.OFFWIN_ITS ---
Intake Vital Signs 04/07/25 08:41 Height 5 ft 2 in Weight 144 lb BMI 26.3 BP 98/70 Blood Pressure Location Rt brachial Position Sitting Pulse 77 Pulse Source Pulse Oximeter Temp 98.5 F Temp Source Oral Pulse Oximetry (%) 97 Oxygen Delivery Method Room Air Intake Visit Reasons: EP ?Diverticulitis issues Intake Note: presents with diarrhea, extreme stomach pain, nausea which worsened after eating blackberries 3 days , now noticing a painful nodule below umbilical. Further notes discomfort to RT axilla s/p swollen lymph node Patient Tobacco Use Status: Former Tobacco user Allergies azithromycin Adverse Reaction (Mild, Verified 04/07/25 08:44) hair loss Do you need a note to return to daycare/school/sports/work: Yes HPI EP ?Diverticulitis issues HPI Details This is a 49-year-old female patient presents to the walk-in clinic today with report abdominal pain and diarrhea for the last 3 days. She states that she has had intermittent flares of belly pain throughout the years, and more recently underwent colonoscopy and was diagnosed with diverticulosis. Recent hysterectomy and oophorectomy 3 months ago. She states that a few days ago, she ate some blackberries, and later developed abdominal pain, more severe in the lower region. She also had multiple episodes of diarrhea. She states that today, she has had a soft stool, but no diarrhea. Denies any blood or mucus in her stool. Denies any fevers. Denies any vomiting, however has had some nausea. Denies urinary symptoms. [facility] Medical History Herpes Seasonal allergies Asthma Surgical History Hx of colonoscopy (~11/27/23) History of sinus surgery History of cholecystectomy History of hernia repair History of appendectomy Family History Mother No problems noted. Father No problems noted. 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 Gender identity: Female Cognitive needs: No Vision needs: Yes (rx glasses) Female Reproductive History Menstrual Age of Menarche: 11 Review of Systems Const All systems reviewed & are unremarkable except as noted in HPI and below Physical Exam Vital Signs: Last Vital Signs Pulse 77 04/07/25 08:41 Pulse Ox 97 04/07/25 08:41 Oxygen Delivery Method Room Air 04/07/25 08:41 BMI result Body Mass Index 26.3 Const General: cooperative, healthy appearing, comfortable and no acute distress HEENT Head: Yes normal to inspection Neck Neck: Yes no lymphadenopathy Resp Effort & Inspection: normal respiratory effort Auscultation: clear to auscultation bilaterally Cardio Rate: regular rate Rhythm: regular rhythm GI Inspection: Yes normal to inspection Palpation (GI): Soft to palpation, Tenderness to palpation present (GI) (diffuse mild/mod abd tenderness, worst in lower quads) and No hepatosplenomegaly present Assessment & Plan Assessment & Plan (1) Diverticulosis of colon: Code(s): K57.30 - Diverticulosis of large intestine without perforation or abscess without bleeding Plan: We discussed limited capability to definitively diagnose diverticulitis in this outpatient setting. She does have abdominal tenderness and diarrhea S/P eating some berries several days ago. I will start her on Augmentin, however we discussed that should her abdominal pain worsen, if she continues to have diarrhea, develops any blood in her stool, or fevers, she should go to the emergency department for prompt evaluation. She verbalizes understanding and agrees to plan. We reviewed indications, use, and possible side effects of medication prescribed. Encourage healthy diet and increase hydration. Medications: New amoxicillin-pot clavulanate 875-125 mg 1 tab PO BID 14 tabs 0RF 7 days K57.30 - Diverticulosis of large intestine without perforation or abscess without bleeding Coding Level of Care Code Est Pt Level 4 (28937) Diagnoses Diverticulosis of colon K57.30
== END 2025-04-07 09:14 | disposition home or self-care (01) ==
PROVIDERS: PCP Internal Medicine; Visit Provider Nurse Practitioner Family
DX: K57.30 Diverticulosis of large intestine without perforation or abscess without bleeding (principal)

== ENCOUNTER 2025-09-12 09:27 | Outpatient (AMB) | payer OTHER, SELFPAY ==
[2025-09-12 09:36] VITALS: BP 90/62; BMI 27.4
--- NOTE | 2025-09-12 09:36 | MHC.OFFVIS ---
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 annual exam/do not reschedule Integrated Circuits Inspector Required: No Satellite Technician: Satellite Technician Present Allergies azithromycin Adverse Reaction (Mild, Verified 09/12/25 09:39) hair loss Medication List - Last Reconciled 09/12/25 by Alea Jolly LPN albuterol sulfate 90 mcg/actuation 2 puffs PO Q4H PRN fluticasone propionate 50 mcg/actuation 1 spray intranasal BID PRN loratadine (Claritin) 10 mg PO DAILY valacyclovir 1,000 mg PO DAILY PRN Is last menstrual period known: No Post menopausal: No Patient : No Do you need a note to return to daycare/school/sports/work: Yes HPI Comments Details: Presenting for annual exam. Complaining of painful intercourse with no associated vaginal discharge or any other symptoms Last Pap/HPV was negative in 07/10 Last Mammogram was BI-RADS 1 in 10/15 Last colonoscopy in 12/12, the recommendation was to repeat in 10 years [facility] Medical History (Updated 09/12/25 @ 09:58 by Miguel Muñoz MD) Herpes Seasonal allergies Asthma Surgical History (Updated 09/12/25 @ 09:58 by Miguel Muñoz MD) H/O hysterectomy with unilateral oophorectomy Hx of colonoscopy (~11/27/23) History of sinus surgery History of cholecystectomy History of hernia repair History of appendectomy Family History Mother No problems noted. Father No problems noted. 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 Gender identity: Female Cognitive needs: No Vision needs: Yes (rx glasses) Female Reproductive History Menstrual Age of Menarche: 11 control method: other Menopause type: surgical Total pregnancies: 4 Full term: 2 Number of Living Children: 2 Date of last pap smear: 07/13/20 History of abnormal pap smear: No History of STI: No Date of Mammogram: 09/27/24 History of abnormal mammogram: No Review of Systems Const All systems reviewed & are unremarkable except as noted in HPI and below Card Reports as per HPI Resp Reports as per HPI GI Reports as per HPI and Reports no additional complaints Reports as per HPI Physical Exam Vital Signs: Last Vital Signs BP 90/62 09/12/25 09:36 BMI result Body Mass Index 27.4 Const General: cooperative, healthy appearing and comfortable Chest Chest palpation & inspection: normal inspection of the chest and normal palpation of entire chest wall Breast/axilla inspection: normal inspection of the breasts and normal inspection of the axillae Breast/axilla palpation: normal palpation of the breasts, normal palpation of the axillae and no axillary lymphadenopathy Resp Effort & Inspection: normal respiratory effort Auscultation: clear to auscultation bilaterally Percussion: percussion normal Cardio Palpation: normal PMI Rate: regular rate Rhythm: regular rhythm Heart sounds: no murmurs and no rubs Peripheral pulses: Peripheral pulses 2+ throughout GI Inspection: Yes normal to inspection Palpation (GI): Soft to palpation, nontender, no guarding, not rigid and No hepatosplenomegaly present Percussion: Yes normal to percussion Auscultation: normal bowel sounds Rectal Exam - Female: deferred General: Yes bladder normal to palpation External Female Exam: No lesion Speculum Exam - Vagina: normal appearance of the vagina, normal palpation, normal vaginal discharge and not erythematous Speculum Exam - Cervix: Cervix absent Bimanual exam- vagina & uterus: normal bimanual exam, normal palpation, bladder normal to palpation and uterus absent Bimanual Exam- Adnexa, other: normal adnexae, no masses and no tenderness Assessment & Plan Assessment & Plan (1) Well woman exam: Code(s): Z01.419 - Encounter for gynecological examination (general) (routine) without abnormal findings Category: Medical Plan: Cotesting not indicated since the patient is status post hysterectomy with no history of abnormal Pap smear Mammogram ordered. Counseled the patient about the recommended dietary allowance of 1000 mg of Calcium & 600 IU of vitamin D. The patient was instructed to perform monthly self-breast exams and to schedule an annual exam in a year; All questions answered and the patient verbalized understanding. Instructed the patient to schedule annual exam in a year (2) Screening for STD (sexually transmitted disease): Code(s): Z11.3 - Encounter for screening for infections with a predominantly sexual mode of transmission Category: Medical Plan: STD screening tests done includes: BV panel for trichomonas will send patient for serology std screening for HIV, RPR, Hep b s Ag, HepC Ab. Instructions given the patient to schedule a follow-up appointment for repeat serology screen in 6 months for possible false negatives. (3) Dyspareunia, female: Code(s): N94.10 - Unspecified dyspareunia Category: Medical Plan: Urine dip done in the office was negative. BV panel collected pelvic ultrasound ordered. Instructions given the patient to schedule ultrasound follow-up appointment within 2 weeks. All questions answered, the patient verbalized understanding Orders: Orders Hepatitis B Surface Antigen Today Z20.2 - Contact with and (suspected) exposure to infections with a predominantly sexual mode of transmission HIV Ab/Ag Today Z20.2 - Contact with and (suspected) exposure to infections with a predominantly sexual mode of transmission US pelvic and transvaginal Today N94.10 - Unspecified dyspareunia MM tomosynthesis screening BI Today Z12.31 - Encounter for screening mammogram for malignant neoplasm of breast Hepatitis C Antibody Today Z20.2 - Contact with and (suspected) exposure to infections with a predominantly sexual mode of transmission Syphilis Screen Today Z20.2 - Contact with and (suspected) exposure to infections with a predominantly sexual mode of transmission Coding Level of Care Code Est Pt Level 3 (71984) Est Pt Prev Care 40-64y(08649) Diagnoses Well woman exam Z01.419 Screening for STD (sexually transmitted disease) Z11.3 Dyspareunia, female N94.10
== END 2025-09-12 10:12 | disposition home or self-care (01) ==
LOC: HO.HWS 09:28
PROVIDERS: PCP Internal Medicine; Visit Provider Obstetrics & Gynecology
DX: Z01.419 Encounter for gynecological examination (general) (routine) without abnormal findings (principal); Z11.3 Encounter for screening for infections with a predominantly sexual mode of transmission; N94.10 Unspecified dyspareunia
CPT/HCPCS: 99213; 99396; 99459

== ENCOUNTER 2025-09-12 09:27 | Outpatient (REF) | payer OTHER, SELFPAY ==
--- OUTSIDE RECORDS SUMMARY | 2025-09-12 11:19 | XMS_ITS | Data Portability ---
Author Organization [facility], [address] Address [address] [place] [address] Care Team Providers Care [address] Mechanical Engineer Name Role Phone TE RYAN Primary Care Provider [phone] Assessment No assessment recorded. Plan of Treatment Reminders Order Date Submit Date Provider Last Modified By Organization Details Last Modified Time Details Appointments None recorded. Lab SARS CoV 2 (COVID-19) Ag, QL, IA, upper respiratory specimen 2022 023 [email or web address], [address] [place] [address], [phone], 3 10:11:29 rapid strep group A, throat 2022 023 [email or web address] 5 [facility], [address] [place] [address], [phone], 3 10:11:30 Referral None recorded. Procedures None recorded. Surgeries None recorded. Imaging None recorded. Medication Orders amoxicillin 875 mg-potassiu m clavulanate 125 mg tablet 2022 023 [id number], [address] [place], [place], [phone], 3 10:11:33 Patient TargetsNo targets recorded. Patient Instructions Encounter Date Encounter Id Patient Instructions Last Modified By Organization Details Last Modified Time 03/31/2023 [id number] Acute Sinusitis: Care Instructions Not available 03/31/2023 10:11:27 controlling your asthma: care instructions [email or web address] Not available 03/31/2023 10:12:05 Rest. Drink plenty [...] Emergency Medical evaluation for any worsening symptoms. Not available 03/31/2023 10:13:57 Reason for Referral None Reported. Results Created Date Observation Date Name Description Value Unit Range Abnormal Flag Note LastModifiedBy Organization Detail LastModifiedTime 03/31/2003/31/2023 SARS CoV 2 (COVI D-19) Ag, QL, IA, upper respi rator y speci men Unknown Analyte Normal = Negati ve Not Available [address], [phone], 03/31/2023 08:42:10 03/31/20 23 03/31/2023 SARS CoV 2 (COVI D-19) Ag, QL, IA, upper respi rator y speci men Unknown Analyte negati ve Not Available [address] [place] [address], [phone], 03/31/2023 08:42:10 03/31/20 23 03/31/2023 rapid strep group A, throa t Unknown Analyte Normal = Negati ve Not Available [address] [place] [address], [phone], 03/31/2023 08:42:14 03/31/20 23 03/31/2023 rapid strep group A, throa t Unknown Analyte negati ve Not Available [address] [place] [address], [phone], 03/31/2023 08:42:14 Result Notes None recorded. Problems Name Problem SNOMED Code Status Onset Date Resolution Date Notes Provider Name and Address Organization Details Recorded Time Asthma [id number] Active 023 [facility] 03/31/2023 [...] mass index (BMI) Body weight Oxygen saturation Heart rate Body temperature Respiratory rate Pain severity - 0-10 verbal numeric rating [Score] - Reported Systolic And Diastolic Provider Name and Address Organization Details Last Updated DateTime 3 157.48 cm 26.5 kg/m2 53986.8 9 g 97 % 65 /min 97.8 [degF] 20 /min 8 98/64 mm[Hg] Lisa Barboza [facility] 08:44:54 Social History Question Answer Notes LastModified [...] or 50 mcg/0.25mL dose 01/15/2021 completed Lisa [place] null, [place] - [facility] 03/31/2023 08:42:59 COVID-19, mRNA, LNP-S, PF, 100 mcg/0.5mL dose or 50 mcg/0.25mL dose 09/09/2021 completed Lisa [place] null, [place] - [facility] 03/31/2023 08:42:59 Past Encounters Encounter ID Performer Location Encounter Start Date Encounter Closed Date Diagnosis/Indication Diagnosis SNOMED-CT Code Diagnosis ICD10 Code Diagnosis IMO Codes Diagnosis Note [id number] [address] [place] [address] 07/04/2021 14:23:20 07/04/2021 17:53:08 [id number] [address] [place] [address] 10/25/2020 12:10:45 10/25/2020 12:55:43 [id number] [address] [place] [phone] 01/08/2021 14:11:52 01/08/2021 14:55:39 [id number] [address] [address] [place] [phone] 10/08/2020 12:35:27 10/08/2020 14:07:[id number] MD [facility] [address] [place] [phone] 03/31/2023 08:17:08 03/31/2023 10:16:09 Acute sinusitis 47149307 J01.90 Health Concerns Section Related Observation LastModified by Organization Detai ls LastModified Time None Recorded Concern Status LastModified by Organization Details LastModified Time None Recorded Advance Directives Directive None Recorded Payers Insurance Date Sequence Insurance Name Policy Number Policy Brand Covered Member ID Brand Member ID Guarantor Name 03/31/2023 1 [facility] [id number] 1 Suly Jones [id number] Suly Jones Notes Date Note Type Note Provider Name and Address Organization Details Recorded Time 03/31/2023 text/html Sinus Complaints UCReported by PatientHPIFor location, patient reportssinus pain,facial pain, andsinus pressurebut reportsleft sideandright side. For associated symptoms, patient reportsnasal discharge from both nostrils,sore throat,post nasal drip,nasal passage blockage bilaterally,ear fullness, andcoughbut reportsno feverandno nausea or vomiting(trouble breathing through nose due to congestion.). For quality, patient reportsworseningandpur ulent. For context, patient reportsworse with seasonal allergen exposurebut reportsno recent sick contacts. For alleviating factors, patient reportsnothing gives relief. For onset/timing, patient reportsinitially started 2months ago. For duration, patient reportsconstant. For severity, patient reportsmoderate. For risk factors, patient reportsno current smoking or tobacco use. For aggravating factors, patient reportsnothing makes it worse. For prior treatment, patient reportstopical decongestant,oral decongestant, andoral steroids:prednisone.47 year old female with hx of asthma, [...] has been using. Evy Lane MD [address] [place], [address], [place] - [facility] 03/31/2023 10:24:09 OBGyn Episode No OBEpisode recorded.
[2025-09-12 12:19] LABS: Syphilis Screen Nonreactive (Nonreactive)
[2025-09-12 12:20] LABS: HBsAGNum1 0.28 S/CO (0.00-0.99); HIV Num 1 0.06 S/CO (0.00-0.99); Hepatitis B Surface Antigen Negative (Negative); ~HepC Num1 0.09 S/CO (0.00-0.79); ~Hepatitis C Antibody Nonreactive (Nonreactive)
[2025-09-12 16:25] LABS: Bacterial Vaginosis PCR POSITIVE (Negative); Candida Group PCR NOT DETECTED (Not Detect); Candida glab krusei PCR NOT DETECTED (Not Detect); Trichomonas vaginalis PCR NOT DETECTED (Not Detect)
== END 2025-09-12 09:28 | disposition home or self-care (01) ==
LOC: HO.LAB 09:27
PROVIDERS: PCP Student in an Organized Health Care Education/Training Program; Visit Provider Obstetrics & Gynecology
DX: Z01.419 Encounter for gynecological examination (general) (routine) without abnormal findings (principal); Z20.2 Contact with and (suspected) exposure to infections with a predominantly sexual mode of transmission; N94.10 Unspecified dyspareunia; R10.20 Pelvic and perineal pain unspecified side; Z11.3 Encounter for screening for infections with a predominantly sexual mode of transmission; Z12.31 Encounter for screening mammogram for malignant neoplasm of breast; Z01.84 Encounter for antibody response examination; Z11.4 Encounter for screening for human immunodeficiency virus [HIV]
CPT/HCPCS: 36415; 81515; 86780; 86803; 87340; 87389